=== PATIENT | male | born 1955 | race Caucasian/White ===

== ENCOUNTER → 2017-07-23 | Outpatient (CLI) | payer BC ==
--- NOTE | 2017-07-23 10:24 | DIAGNOSTIC IMAGING REPORT ---
GI SERIES AND SMALL BOWEL CLINICAL HISTORY: ANEMIA COMPARISON STUDY: None FLUOROSCOPY TIME: 3.8 minutes. NUMBER OF FLUOROSCOPIC IMAGES: 45 FINDINGS: The patient swallowed effervescent granules and barium. There is one episode of trace aspiration. No esophageal masses were visualized. No gastric masses were evident. The duodenal bulb appeared normal. Reflux is identified. There is a duodenal diverticulum. There is a small hiatal hernia. The patient was administered Enterovue a small bowel follow-through was performed. There were no transition zones indicate bowel obstruction. Contrast reached the colon in 1 hour 20 minutes. Real-time fluoroscopic palpation reveal multiple abnormal loops of distal ileum characterized by mucosal nodularity mild narrowing and decreased peristalsis. IMPRESSION: 1. Small hiatal hernia with reflux 2. No evidence of bowel obstruction 3. Multiple abnormal loops of ileum characterized by mucosal nodularity, mild narrowing and diminished peristalsis. Diagnostic considerations include an infectious or inflammatory ileitis, versus metastatic disease. Electronically signed by: El Marion M.D. 07/23/2017 10:23 AM Dictated Date/Time: 07/23/2017 10:17 AM
== END | disposition home or self-care (01) ==
LOC: C.RAD 07:57
PROVIDERS: ATTEND Internal Medicine Gastroenterology
DX: D50.0 Iron deficiency anemia secondary to blood loss (chronic) (principal); K44.9 Diaphragmatic hernia without obstruction or gangrene; R93.3 Abnormal findings on diagnostic imaging of other parts of digestive tract

== ENCOUNTER 2018-02-14 20:51 | Emergency (ER) | payer BC ==
[~2018-02-14] VITALS: Ht 182.9 cm; Wt 89.1 kg
[2018-02-14 21:02] VITALS: TEMP 36.9; Ht 182.9 cm; Wt 89.1 kg
[2018-02-14 21:36] LABS: BASO % 0.9 %; BASO ABS # 0.06 K/uL (0-0.2); EOS % 4.5 %; EOS ABS # 0.31 K/uL (0-0.5); HEMATOCRIT 33.3 % (42-52); HEMOGLOBIN 11.4 g/dL (14.0-18.0); IG# 0.02 K/uL (0.00-0.02); LYMPH % 34.6 %; LYMPH ABS # 2.38 K/uL (1.2-3.4); MEAN CORPUSCULAR HEMOGLOBIN 29.5 pg (25-34); MEAN CORPUSCULAR HGB CONC 34.2 g/dl (32-36); MONO % 7.1 %; MONO ABS # 0.49 K/uL (0.11-0.59); NEUT % 52.6 %; NEUT ABS # 3.61 K/uL (1.4-6.5); PLATELET COUNT 312 K/uL (130-400); WHITE BLOOD COUNT 6.87 K/uL (4.8-10.8)
--- NOTE | 2018-02-14 21:39 | EMERGENCY ROOM VISIT NOTE ---
History Report prepared by Leisa: Isidro Vu Under the Supervision of: Dr. Emilee Lr M.D. First contact with patient: 21:11 Chief Complaint: RECTAL BLEEDING Stated Complaint: BLOOD IN WASTE History of Present Illness The patient is a 62 year old male who presents to the Emergency Room with complaints of recurrent rectal bleeding since 1800 today. He notes he had constipation for the last two days, though he was able to have a bowel movement last night. He notes it was a bloody stool initially and then he had a normal bowel movement. He notes he had to go again and it was bloody again and very loose; diarrhea. He has a history of inguinal hernias. He reports a history of sciatica. He reports abdominal pain. He had a colonoscopy one year ago, which was normal. He had a polyp that was removed. Source of History: patient Onset: 1799 today Position: other (rectal) Quality: other (bleeding ) Timing: other (recurrent) Associated Symptoms: + abdominal pain, + diarrhea Note: Notes bloody stools. Review of Systems See HPI for pertinent positives & negatives. A total of 10 systems reviewed and were otherwise negative. Past Medical & Surgical Medical Problems: (1) Inguinal hernia (2) Sciatica Family History Cancer Gallbladder disease Heart disease Hypertension Social History Smoking Status: Former Smoker Smokeless Tobacco Use: No Alcohol Use: none Drug Use: none Marital Status: Housing Status: lives with significant other Occupation Status: employed Current/Historical Medications Scheduled Ciprofloxacin Hcl (Cipro), 500 MG PO BID Ferrous Sulfate (Iron), 325 MG PO DAILY Metronidazole (Flagyl), 500 MG PO TID Multiple Vitamins W/ Minerals (Multi For Him 50+), 1 TAB PO DAILY Scheduled PRN Acetaminophen (Tylenol), 1,000 MG PO DIRECTED PRN for Pain Aspirin (Aspirin Ec), 325 MG PO DIRECTED PRN for Pain Naproxen (Aleve), 220 MG PO DIRECTED PRN for Pain Allergies Coded Allergies: No Known Allergies (Unverified , 02/14/18) Physical Exam Vital Signs Date Time Temp Pulse Resp B/P (MAP) Pulse Ox O2 Delivery O2 Flow Rate FiO2 02/14/18 22:46 69 20 124/77 96 Room Air 02/14/18 21:43 70 02/14/18 21:02 36.9 85 19 127/79 97 Room Air Physical Exam Vital signs reviewed. General: Well-appearing, in no significant distress. HEENT: No scleral icterus, PERRLA, neck supple. Atraumatic. Cardiovascular: Regular rate and rhythm, no extra sounds. Pulmonary: Clear to auscultation bilaterally, normal work of breathing. Abdomen: Soft, mild RLQ tenderness, no rebound, no guarding, nondistended, positive bowel sounds. Rectal: Guaiac positive, normal rectal mucosa. Musculoskeletal: Atraumatic, no peripheral edema. Neurologic: Patient awake alert and oriented x 3 Skin: Warm, dry, no rash Medical Decision & Procedures ER Provider Diagnostic Interpretation: Radiology results as stated below per my review and radiologist interpretation: ABD/PELVIS IV CONTRAST ONLY CLINICAL HISTORY: 62 years-old Male presenting with diverticulitis, GIB. TECHNIQUE: Multidetector CT of the abdomen and pelvis was performed after the administration of intravenous contrast. IV contrast: 117 mL of Optiray 320. A dose lowering technique was used consistent with the principles of ALARA (as low as reasonably achievable). COMPARISON: None. CT DOSE (mGy.cm): The estimated cumulative dose is 507.01 mGy.cm. FINDINGS: Rn Charge topogram: Unremarkable. Lung bases: Minimal basilar opacities, likely atelectasis. 6 mm solid nodule at the left lower lobe (series 3 image 60). Normal heart size. Coronary artery calcification. No pericardial or pleural effusion. Liver: Normal morphology. No liver lesion. Patent hepatic vasculature. Biliary: No intrahepatic or extrahepatic biliary ductal dilatation. Gallbladder contains gallstones. Pancreas: Normal. Spleen: Normal. Adrenal glands: Normal. Kidneys and ureters: Normal. No hydronephrosis. Bladder: Normal. Pelvic organs: Prostate and seminal vesicles normal. Bowel: Diverticulosis of the descending and proximal to mid sigmoid colon. Pericolonic fat infiltration at the proximal sigmoid colon. No adjacent fluid collection or extraluminal gas. The appendix is normal. No bowel obstruction. Duodenal diverticulum noted. No surrounding inflammatory change. Peritoneal cavity: No free fluid or intraperitoneal gas. Peritoneal thickening along the left paracolic gutter inferiorly. Lymph nodes: No enlarged lymph nodes in the abdomen or pelvis. Vasculature: Atherosclerosis of the normal caliber abdominal aorta. IVC patent. Abdominal wall: Normal. Musculoskeletal: Degenerative changes of the spine. IMPRESSION: 1. Findings consistent with acute uncomplicated diverticulitis at the proximal sigmoid colon. No extraluminal gas or abscess. 2. 6 mm solid nodule at the left lower lobe. Follow-up per Blair Society 2017 recommendations below. Please refer to below summary of Fleischner Society 2017 recommendations for follow-up of incidental CT nodules (Judith Albrecht et al. Guidelines for management of incidental pulmonary nodules detected on CT images: From the Fleischner Society 2017. Radiology 2017; 284: 228-243.) SOLID NODULES Single nodule; size < 6 mm * Low risk patients: No routine follow-up * High risk patients: Optional CT at 12 months Single nodule; size 6-8 mm * Low risk patients: CT at 6-12 months, then consider CT at 18-24 months * High risk patients: CT at 6-12 months, then at 18-24 months Single nodule; size > 8 mm * Either low or high risk patients: Considered CT at 3 months, PET/CT, or tissue sampling Multiple nodules; size < 6 mm * Low risk patients: No routine follow up * High risk patients: Optional CT at 12 months Multiple nodules; size 6-8 mm * Low risk patients: CT at 3-6 months, then consider CT at 18-24 months * High risk patients: CT at 3-6 months, then at 18-24 months Multiple nodules; size > 8 mm * Low risk patients: CT at 3-6 months, then consider at 18-24 months * High risk patients: CT at 3-6 months, then at 18-24 months SUBSOLID NODULES Single ground-glass nodule * Nodule size < 6 mm: No routine follow-up * Nodule size > or = 6 mm: CT at 6-12 months to confirm persistence, then CT every 2 years until 5 years Single part-solid nodule * Nodule size < 6 mm: No routine follow-up * Nodules size > or = 6 mm: CT at 3-6 months to confirm persistence. If unchanged and solid component remains < 6 mm, annual CT should be performed for 5 years Multiple nodules * Nodule size < 6 mm: CT at 3-6 months. If stable, consider CT at 2 and 4 years. * Nodules size > or = 6 mm: CT at 3-6 months. Subsequent management based on the most suspicious nodule(s) NOTE: 1) These guidelines apply to incidental nodules. These guidelines do NOT apply to patients younger than 35 years, immunocompromised patients, or patients with cancer. 2) Risk categories: * Low risk patients: Minimal or absent history of smoking and/or other known risk factors * High risk patients: History of smoking, exposure to other carcinogens, emphysema, fibrosis, upper lobe location, family history of lung cancer, etc. 3) If a nodule up to 8 mm is partly solid or is ground glass, further follow-up is required after 24 months to exclude possible slow growing adenocarcinoma. Electronically signed by: Bacilio Lopes M.D. 02/14/2018 10:38 PM Dictated Date/Time: 02/14/2018 10:31 PM Laboratory Results 02/14/18 21:26 Red Blood Count 3.87, Mean Corpuscular Volume 86.0, Mean Corpuscular Hemoglobin 29.5, Mean Corpuscular Hemoglobin Concent 34.2, Mean Platelet Volume 9.0, Neutrophils (%) (Auto) 52.6, Lymphocytes (%) (Auto) 34.6, Monocytes (%) (Auto) 7.1, Eosinophils (%) (Auto) 4.5, Basophils (%) (Auto) 0.9, Neutrophils # (Auto) 3.61, Lymphocytes # (Auto) 2.38, Monocytes # (Auto) 0.49, Eosinophils # (Auto) 0.31, Basophils # (Auto) 0.06 02/14/18 21:26 Test 02/14/18 21:26 White Blood Count 6.87 K/uL (4.8-10.8) Red Blood Count 3.87 M/uL (4.7-6.1) Hemoglobin 11.4 g/dL (14.0-18.0) Hematocrit 33.3 % (42-52) Mean Corpuscular Volume 86.0 fL (80-100) Mean Corpuscular Hemoglobin 29.5 pg (25-34) Mean Corpuscular Hemoglobin Concent 34.2 g/dl (32-36) Platelet Count 312 K/uL (130-400) Mean Platelet Volume 9.0 fL (7.4-10.4) Neutrophils (%) (Auto) 52.6 % Lymphocytes (%) (Auto) 34.6 % Monocytes (%) (Auto) 7.1 % Eosinophils (%) (Auto) 4.5 % Basophils (%) (Auto) 0.9 % Neutrophils # (Auto) 3.61 K/uL (1.4-6.5) Lymphocytes # (Auto) 2.38 K/uL (1.2-3.4) Monocytes # (Auto) 0.49 K/uL (0.11-0.59) Eosinophils # (Auto) 0.31 K/uL (0-0.5) Basophils # (Auto) 0.06 K/uL (0-0.2) RDW Standard Deviation 41.0 fL (36.4-46.3) RDW Coefficient of Variation 13.0 % (11.5-14.5) Immature Granulocyte % (Auto) 0.3 % Immature Granulocyte # (Auto) 0.02 K/uL (0.00-0.02) Prothrombin Time 10.2 SECONDS (9.0-12.0) Prothromb Time International Ratio 1.0 (0.9-1.1) Activated Partial Thromboplast Time 26.0 SECONDS (21.0-31.0) Partial Thromboplastin Ratio 1.0 Anion Gap 6.0 mmol/L (3-11) Est Creatinine Clear Calc Drug Dose 85.8 ml/min Estimated GFR () 95.4 Estimated GFR (Non- 82.3 BUN/Creatinine Ratio 21.1 (10-20) Calcium Level 8.7 mg/dl (8.5-10.1) Total Bilirubin 0.4 mg/dl (0.2-1) Direct Bilirubin 0.1 mg/dl (0-0.2) Aspartate Amino Transf (AST/SGOT) 23 U/L (15-37) Alanine Aminotransferase (ALT/SGPT) 38 U/L (12-78) Alkaline Phosphatase 95 U/L (45-117) Total Protein 6.3 gm/dl (6.4-8.2) Albumin 3.2 gm/dl (3.4-5.0) Laboratory results per my review. Medications Administered Medications (Trade) Dose Ordered Sig/Prabha Route Start Time Stop Time Status Last Admin Dose Admin Ciprofloxacin (Cipro Tab) 500 mg NOW STAT PO 02/14/18 23:25 18 23:27 DC 02/14/18 23:31 500 MG Metronidazole (Flagyl Tab) 500 mg NOW STAT PO 02/14/18 23:25 18 23:27 DC 02/14/18 23:31 500 MG ECG Per My Interpretation Indication: abdominal pain Rate (beats per minute): 73 Rhythm: normal sinus Findings: no acute ischemic change, no ectopy, other (Previous inferior infarct.) ED Course 2129: Past medical records reviewed. The patient was evaluated in room C4. A complete history and physical examination was performed. 0: I reassessed the patient at this time. I discussed the results and treatment plan with the patient. I answered all pertaining questions that he had. He expressed understanding and verbalized agreement. The patient will be discharged home. 5: Ordered Flagyl 500 mg and Cipro 500 mg PO Medical Decision Differential diagnosis: Etiologies such as diverticulosis, AVM, coagulopathy, colitis, inflammatory bowel disease, malignancy, Antonella-Calvillo tear, esophagitis, peptic ulcer disease , variceal bleed, gastritis, epistaxis, fissure, hemorrhoids, as well as others were entertained. This patient was evaluated and appeared to be in no significant distress. IV access was obtained and laboratory work was drawn. Patient was placed on cardiac cath lab radiology technologist and found to be in a normal sinus rhythm. Patient's blood pressures did remain stable. He is found to be mildly anemic with a hemoglobin of 11.4. Patient had no further bowel movements in the emergency department. CT scan of the abdomen pelvis was performed and is consistent with an acute diverticulitis. On reevaluation, the patient continued to do well. Patient was given a dose of p.o. Cipro and Flagyl. Patient was discharged to the care of his and will return to the ER for worsening of symptoms or any medical concerns. Medication Reconcilliation Current Medication List: was personally reviewed by me Blood Pressure Screening Patient's blood pressure: Normal blood pressure Impression Primary Impression: Lower GI bleed Additional Impression: Diverticulitis Scribe Attestation The scribe's documentation has been prepared under my direction and personally reviewed by me in its entirety. I confirm that the note above accurately reflects all work, treatment, procedures, and medical decision making performed by me. Departure Information Dispostion Home / Self-Care Prescriptions Metronidazole (Flagyl) 500 Mg Tab 500 MG PO TID, #21 TAB Prov: Emilee Lr M.D. 02/14/18 Ciprofloxacin Hcl (CIPRO) 500 Mg Tab 500 MG PO BID, #14 TAB Prov: Emilee Lr M.D. 02/14/18 Referrals Nhan Key M.D. (PCP) Forms HOME CARE DOCUMENTATION FORM, IMPORTANT VISIT INFORMATION, WORK / SCHOOL INSTRUCTIONS Patient Instructions My [facility] Additional Instructions Diagnosis: Lower GI Bleed, Diverticulitis Cipro 500 mg twice daily for 7 days. Flagyl 500 mg three times daily for 7 days. Drink plenty of clear fluids. Follow up with your doctor this week for reevaluation. Return to the emergency for worsening of symptoms or any medical concerns. Problem Qualifiers
[2018-02-14 21:57] LABS: ALBUMIN 3.2 gm/dl (3.4-5.0); CALCIUM 8.7 mg/dl (8.5-10.1); CREATININE 0.98 mg/dl (0.60-1.40); POTASSIUM 3.8 mmol/L (3.5-5.1)
[2018-02-14 22:00] LABS: TOTAL PROTEIN 6.3 gm/dl (6.4-8.2)
[2018-02-14] MEDS ORDERED: ASPI325T39 PO (22:06)
[2018-02-14] MEDS ORDERED: MULT-221 PO (22:06)
[2018-02-14] MEDS ORDERED: FERR1TAB23 PO (22:06)
[2018-02-14] MEDS ORDERED: ACET-1256 PO (22:06)
[2018-02-14] MEDS ORDERED: NAPR1TAB9 PO (22:06)
[2018-02-14] MEDS ORDERED: OPTIRAY 320 IV PRN (22:15)
--- NOTE | 2018-02-14 22:39 | DIAGNOSTIC IMAGING REPORT ---
ABD/PELVIS IV CONTRAST ONLY CLINICAL HISTORY: 62 years-old Male presenting with diverticulitis, GIB. TECHNIQUE: Multidetector CT of the abdomen and pelvis was performed after the administration of intravenous contrast. IV contrast: 117 mL of Optiray 320. A dose lowering technique was used consistent with the principles of ALARA (as low as reasonably achievable). COMPARISON: None. CT DOSE (mGy.cm): The estimated cumulative dose is 507.01 mGy.cm. FINDINGS: [employer] topogram: Unremarkable. Lung bases: Minimal basilar opacities, likely atelectasis. 6 mm solid nodule at the left lower lobe (series 3 image 60). Normal heart size. Coronary artery calcification. No pericardial or pleural effusion. Liver: Normal morphology. No liver lesion. Patent hepatic vasculature. Biliary: No intrahepatic or extrahepatic biliary ductal dilatation. Gallbladder contains gallstones. Pancreas: Normal. Spleen: Normal. Adrenal glands: Normal. Kidneys and ureters: Normal. No hydronephrosis. Bladder: Normal. Pelvic organs: Prostate and seminal vesicles normal. Bowel: Diverticulosis of the descending and proximal to mid sigmoid colon. Pericolonic fat infiltration at the proximal sigmoid colon. No adjacent fluid collection or extraluminal gas. The appendix is normal. No bowel obstruction. Duodenal diverticulum noted. No surrounding inflammatory change. Peritoneal cavity: No free fluid or intraperitoneal gas. Peritoneal thickening along the left paracolic gutter inferiorly. Lymph nodes: No enlarged lymph nodes in the abdomen or pelvis. Vasculature: Atherosclerosis of the normal caliber abdominal aorta. IVC patent. Abdominal wall: Normal. Musculoskeletal: Degenerative changes of the spine. IMPRESSION: 1. Findings consistent with acute uncomplicated diverticulitis at the proximal sigmoid colon. No extraluminal gas or abscess. 2. 6 mm solid nodule at the left lower lobe. Follow-up per Blair Society 2017 recommendations below. Please refer to below summary of Fleischner Society 2017 recommendations for follow-up of incidental CT nodules (H Ambrocio et al. Guidelines for management of incidental pulmonary nodules detected on CT images: From the Fleischner Society 2017. Radiology 2017; 284: 228-243.) SOLID NODULES Single nodule; size < 6 mm * Low risk patients: No routine follow-up * High risk patients: Optional CT at 12 months Single nodule; size 6-8 mm * Low risk patients: CT at 6-12 months, then consider CT at 18-24 months * High risk patients: CT at 6-12 months, then at 18-24 months Single nodule; size > 8 mm * Either low or high risk patients: Considered CT at 3 months, PET/CT, or tissue sampling Multiple nodules; size < 6 mm * Low risk patients: No routine follow up * High risk patients: Optional CT at 12 months Multiple nodules; size 6-8 mm * Low risk patients: CT at 3-6 months, then consider CT at 18-24 months * High risk patients: CT at 3-6 months, then at 18-24 months Multiple nodules; size > 8 mm * Low risk patients: CT at 3-6 months, then consider at 18-24 months * High risk patients: CT at 3-6 months, then at 18-24 months SUBSOLID NODULES Single ground-glass nodule * Nodule size < 6 mm: No routine follow-up * Nodule size > or = 6 mm: CT at 6-12 months to confirm persistence, then CT every 2 years until 5 years Single part-solid nodule * Nodule size < 6 mm: No routine follow-up * Nodules size > or = 6 mm: CT at 3-6 months to confirm persistence. If unchanged and solid component remains < 6 mm, annual CT should be performed for 5 years Multiple nodules * Nodule size < 6 mm: CT at 3-6 months. If stable, consider CT at 2 and 4 years. * Nodules size > or = 6 mm: CT at 3-6 months. Subsequent management based on the most suspicious nodule(s) NOTE: 1) These guidelines apply to incidental nodules. These guidelines do NOT apply to patients younger than 35 years, immunocompromised patients, or patients with cancer. 2) Risk categories: * Low risk patients: Minimal or absent history of smoking and/or other known risk factors * High risk patients: History of smoking, exposure to other carcinogens, emphysema, fibrosis, upper lobe location, family history of lung cancer, etc. 3) If a nodule up to 8 mm is partly solid or is ground glass, further follow-up is required after 24 months to exclude possible slow growing adenocarcinoma. Electronically signed by: Bacilio Lopes M.D. 02/14/2018 10:38 PM Dictated Date/Time: 02/14/2018 10:31 PM
[2018-02-14 22:46] VITALS: BP 124/77; PULSE 69; O2SAT 96
[2018-02-14] MEDS ORDERED: CIPR-255 PO (23:16)
[2018-02-14] MEDS ORDERED: METR-163 PO (23:16)
[2018-02-14] MEDS ORDERED: METRONIDAZOLE 250 MG TAB PO STA (23:25)
[2018-02-14] MEDS ORDERED: CIPROFLOXACIN 500 MG TAB PO STA (23:25)
[2018-02-15] MEDS ORDERED: CIPR1TAB10 PO (02:26)
[2018-02-15] MEDS ORDERED: METR-163 PO (02:30)
[2018-02-16] MEDS ORDERED: METR-163 PO (13:49)
[2018-02-16] MEDS ORDERED: CIPR1TAB10 PO (13:49)
== END 2018-02-14 23:26 | disposition home or self-care (01) ==
LOC: C.EDB 20:51 → C.EDC 23:26
DX: K92.2 Gastrointestinal hemorrhage, unspecified (principal); K57.92 Diverticulitis of intestine, part unspecified, without perforation or abscess without bleeding; Z87.891 Personal history of nicotine dependence

== ENCOUNTER 2018-02-15 02:13 | Inpatient (IN) | payer BC ==
[2018-02-15] VITALS (8 sets, daily range): BP systolic 111–124; BP diastolic 70–75; PULSE 62–73; TEMP 36.4–36.7; O2SAT 96–100; Ht 182.9 cm; Wt 86.8 kg
[~2018-02-15] VITALS: Ht 182.9 cm; Wt 86.8 kg
[~2018-02-15 02:13] MED LIST: ACET-1256 PO; ASPI325T39 PO; CIPR-255 PO; FERR1TAB23 PO; METR-163 PO; MULT-221 PO; NAPR1TAB9 PO
[2018-02-15] MEDS ORDERED: SODIUM CHLORIDE 0.9% 1000ML 1,000 ML IV STA ×3 (02:15→07:29)
[2018-02-15] MEDS ORDERED: CIPR1TAB10 PO (02:26)
[2018-02-15] MEDS ORDERED: METR-163 PO (02:30)
[2018-02-15 02:41] LABS: ISTAT IONIZED CALCIUM 1.25 mmol/l (1.12-1.32); ISTAT POTASSIUM 3.9 mEq/L (3.3-5.0)
[2018-02-15 03:07] LABS: BASO % 0.5 %; BASO ABS # 0.03 K/uL (0-0.2); EOS % 3.4 %; EOS ABS # 0.19 K/uL (0-0.5); HEMATOCRIT 31.5 % (42-52); HEMOGLOBIN 10.4 g/dL (14.0-18.0); IG# 0.02 K/uL (0.00-0.02); LYMPH % 26.1 %; LYMPH ABS # 1.46 K/uL (1.2-3.4); MEAN CELL VOLUME 86.5 fL (80-100); MEAN CORPUSCULAR HEMOGLOBIN 28.6 pg (25-34); MEAN PLATELET VOLUME 9.2 fL (7.4-10.4); MONO % 8.1 %; MONO ABS # 0.45 K/uL (0.11-0.59); NEUT % 61.5 %; NEUT ABS # 3.44 K/uL (1.4-6.5); PLATELET COUNT 288 K/uL (130-400); RED CELL DISTRIBUTION WIDTH SD 41.7 fL (36.4-46.3); WHITE BLOOD COUNT 5.59 K/uL (4.8-10.8)
[2018-02-15 03:18] LABS: ALBUMIN 2.9 gm/dl (3.4-5.0); CALCIUM 8.8 mg/dl (8.5-10.1); CREATININE 1.08 mg/dl (0.60-1.40); POTASSIUM 3.8 mmol/L (3.5-5.1)
[2018-02-15 03:29] LABS: TOTAL PROTEIN 5.8 gm/dl (6.4-8.2)
[2018-02-15] MEDS ORDERED: NSS + 20MEQ KCL 1000ML 1,000 ML IV ONE ×4 (04:00→07:00)
[2018-02-15] MEDS ORDERED: MAGNESIUM SULFATE 1GM / D5W 100 ML IV STA (04:13)
[2018-02-15] MEDS ORDERED: NITROGLYCERIN 0.4 MG SL PER TAB CHARGE SL PRN (04:15)
[2018-02-15] MEDS ORDERED: PROCHLORPERAZINE INJ 5 MG in SYRINGE 4 ML IV PRN (04:15)
[2018-02-15] MEDS ORDERED: MoRPHine SULFATE 4 MG/ML 1 ML CARP\\VIAL IV PRN (04:15)
[2018-02-15] MEDS ORDERED: ACETAMINOPHEN 325 MG TAB PO PRN (04:15)
[2018-02-15] MEDS ORDERED: OXYCODONE/ACETAMINOPHEN 5-325 TAB PO PRN (04:15)
[2018-02-15] MEDS ORDERED: LORAZEPAM 2 MG/ML 1 ML VIAL IV PRN (05:00)
[2018-02-15] MEDS: CEFTRIAXONE SOD INJ 1 GM in DEXTROSE 5% ADD-VANTAGE 50ML 50 ML IV SCH (05:14)
[2018-02-15] MEDS: METRONIDAZOLE / NSS 500 MG in PREMIXED NSS 100 ML IV SCH ×3 (05:59→21:35)
[2018-02-15 06:26] LABS: HEMOGLOBIN 11.1 g/dL (14.0-18.0); RETIC COUNT % 1.6 % (0.5-2.0)
--- NOTE | 2018-02-15 07:00 | DIAGNOSTIC IMAGING REPORT ---
CT OF THE HEAD WITHOUT CONTRAST CLINICAL HISTORY: syncope, asa intake COMPARISON STUDY: No previous studies for comparison. CT DOSE: 614.27 mGy.cm TECHNIQUE: Helical axial images of the head were obtained without IV contrast. Automated exposure control was utilized for the study. A dose lowering technique was utilized adhering to the principles of ALARA. FINDINGS: No acute intracranial hemorrhage or midline shift is present. Ventricular system is normal. Basilar cisterns are patent. There are no extra-axial collections. Farah-white differentiation is maintained. There are no findings to suggest acute dural sinus thrombosis or acute territorial infarct. There is an intermediate attenuation sellar mass with suprasellar extension measures approximately 3.2 x 2.6 x 3.1 cm. This has associated bony remodeling/expansion of the sella. There are no significant calvarial abnormalities. Visualized portions of the mastoid air cells are clear. There is minimal ethmoid sinus mucosal thickening. IMPRESSION: 1. No acute intracranial findings. 2. Sellar mass with suprasellar extension, measuring approximately 3.2 x 2.6 x 3.1 cm. A macroadenoma is favored. A meningioma or craniopharyngioma could appear similar. An aneurysm is within the differential although considered less likely. A pituitary protocol MRI is recommended as well as an MRA of the intracranial circulation to exclude aneurysm. Discussed with Dr. Stratton at time of dictation. Electronically signed by: Jamir Lebron M.D. 02/15/2018 6:58 AM Dictated Date/Time: 02/15/2018 6:36 AM
[2018-02-15 08:19] LABS: PTT PATIENT 25.3 SECONDS (21.0-31.0)
[2018-02-15] MEDS: CEROVITE ADV FORMULA TAB PO SCH (08:27)
--- NOTE | 2018-02-15 08:37 | HISTORY & PHYSICAL EXAMINATION ---
DATE OF ADMISSION: 02/15/2018 PRIMARY CARE DOCTOR: Dr. Aceves. CHIEF COMPLAINT: Syncope. HISTORY OF PRESENT ILLNESS: History obtained from patient, daughter, and records. Medical history significant for chronic anemia (patient does not know his baseline). Last 2 days, patient noted right lower abdominal pain, initially constipated, later noted to have rectal bleeding last night about 2 episodes. No recent antibiotics. No known sick contacts. Aspirin intake for pain. Seen at the Emergency Room. CT abdomen and pelvis showed uncomplicated diverticulitis proximal sigmoid colon , a 6 mm solid nodule in the left lower lobe. Hemoglobin noted to be 11. Patient normotensive. Patient given Cipro and Flagyl tablets at the ER and sent home with antibiotic prescription. At home, patient felt lightheaded, dizzy, had cold sweats, had 2 more bloody bowel movements. Unwitnessed syncopal event in the TV room. Patient found by his . Bladder incontinence noted, no tongue biting. No chest pain, no shortness of breath. No headache. No blurred or double vision. Brought to the Emergency Room. SBP 90s. MEDICAL HISTORY: As above. EGD and colonoscopy this year as per patient with [facility] in [place], [place] for anemia. Normal findings as per patient. SURGICAL HISTORY: He had hernia surgery, eye surgery in childhood. HOME MEDICATIONS. Cipro, Flagyl, iron sulfate, Aleve, aspirin. MVi ALLERGIES: No known drug allergies. FAMILY HISTORY: Heart disease, hypertension PERSONAL SOCIAL HISTORY: Nonsmoker. No EtOH intake. 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 REVIEW OF SYSTEMS: As per HPI. All 10 systems were reviewed, all other ROS negative. PHYSICAL EXAMINATION: VITAL SIGNS: Blood pressure was noted to be 95/56, pulse rate noted to be 55, RR 20 T 37 sats 99 on room air. GENERAL: Noted to be slightly anxious, no respiratory distress. SKIN: Pallor, warm. HEENT: Pale palpebral conjunctivae. No ptosis, bespectacled. Dry mucosa. NECK: Short, supple. CHEST: Clear to auscultation. No tenderness. HEART: Bradycardic. No murmur. ABDOMEN: Some distention and nontender . EXTREMITIES: No edema. No tenderness no gross deformities NEUROLOGIC coherent, no facial asymmetry . No gross focality. LABORATORY: Hemoglobin was noted to be 10.4 from 11.6 (5/3), white cells 5.9, platelets noted to be 288. Sodium noted to be 135, potassium 3.8, chloride 107, CO2 24, BUN 20, creatinine 1, glucose 163. Lactic acid was noted to be 2.3. EKG as per my interpretation, rate 55, sinus bradycardia, some T-wave flattening in the lateral leads. CT head initial read, no evidence of intracranial hemorrhage or shift, expansile heterogeneous intrasellar mass with suprasellar extension, neoplasm versus aneurysm. CTA or MRI, MRA of brain to better evaluate. ASSESSMENT: 1. Syncope likely secondary to orthostasis secondary to lower gastrointestinal bleed 2 to R sided diverticular bleed (ro Clostridium difficile) rule out other differentials for unwitnessed syncopal event such as arrhythmia , structural cardiac pathology, seizures (given episode of urinary incontinence) 2. Acute on chronic anemia secondary to LGIB unknown baseline. 3. Intracranial mass on initial CT read. 4. Hyperglycemia rule out DM 5. incidental finding of SPN PLAN: PCU IV fluids. Follow lactic acid Stool C. difficile Ceftriaxone and Flagyl for now. Follow H&H, transfuse PRBC if hemoglobin less than 7 and or for symptomatic anemia Anemia workup GI consult RE LGIB. Syncope workup: TTE, EEG follow official CT head results; possible MRI of brain. Check hemoglobin A1c outpatient follow-up surveillance study for SPN DVT prophylaxis SCDs. RE LGIB Full code. MTDD
[2018-02-15 09:10] LABS: HEMOGLOBIN A1C 5.6 % (4.5-5.6)
--- NOTE | 2018-02-15 09:20 | ECHOCARDIOGRAM REPORT ---
*NOTICE TO RECEIVING DEMOCRAT AGENCY This information is strictly Confidential and protected under [place] law. [place] law prohibits you from making any further disclosure of this information unless further disclosure is expressly permitted by the written consent of the person to whom it pertains or is authorized by law. A general authorization for the release of medical or other information is not sufficient for this purpose. Hospital accepts no responsibility if the information is made available to any other person, INCLUDING THE PATIENT. Interpretation Summary * Name: ROCCO FERGUSON Study Date: 02/15/2018 07:16 AM BP: 111/74 mmHg * Patient Location: C.2T\S\E215\S\1 HR: 59 * : 1955 (M/d/yyyy) Gender: Male Height: 72 in * Age: 62 yrs Ethnicity: CA Weight: 191 lb * Ordering Physician: Jayce Stratton * Referring Physician: UNKNOWN * Performed By: Loni Cabrera RDCS * * Reason For Study: SYNCOPE * BSA: 2.1 m2 * -- Conclusions -- * The left ventricle is normal in size. * The left ventricular wall motion is normal. * Left ventricular systolic function is normal. * Ejection Fraction = 60-65%. * There is mild concentric left ventricular hypertrophy. * There is no significant valvular disease Procedure Details * A complete two-dimensional transthoracic echocardiogram was performed (2D, M-mode, Doppler and color flow Doppler). Left Ventricle * The left ventricle is normal in size. * There is mild concentric left ventricular hypertrophy. * Ejection Fraction = 60-65%. * Left ventricular systolic function is normal. * The left ventricular wall motion is normal. Right Ventricle * The right ventricle is normal in size and function. Atria * The left atrial size is normal. * Right atrial size is normal. * No ASD detected; PFO is not assessed. Mitral Valve * The mitral valve anatomy is normal. * There is no mitral valve stenosis. * There is trace mitral regurgitation. Tricuspid Valve * The tricuspid valve anatomy is normal. * There is no tricuspid stenosis. * There is trace tricuspid regurgitation. Aortic Valve * The aortic valve is trileaflet. * No hemodynamically significant valvular aortic stenosis. * No aortic regurgitation is present. Pulmonic Valve * The pulmonic valve is not well visualized. Great Vessels * The aortic root is normal size. Pericardium/Pleural * There is no pericardial effusion. Great Vessels * Normal inferior vena cava diameter and respiratory variation suggests normal central venous pressure. MMode 2D Measurements and Calculations IVSd 1.3 cm IVSs 1.9 cm LVIDd 4.4 cm LVIDs 3.0 cm LVPWd 1.2 cm LVPWs 1.6 cm IVS/LVPW 1.0 FS 32.2 % EDV(Teich) 86.0 ml ESV(Teich) 33.9 ml EF(Teich) 60.6 % EDV(cubed) 83.1 ml ESV(cubed) 25.9 ml EF(cubed) 68.8 % % IVS thick 47.1 % % LVPW thick 27.3 % LV mass(C)d 203.8 grams LV mass(C)dI 97.6 grams/m\S\2 LV mass(C)s 200.4 grams LV mass(C)sI 95.9 grams/m\S\2 SV(Teich) 52.2 ml SI(Teich) 25.0 ml/m\S\2 SV(cubed) 57.2 ml SI(cubed) 27.4 ml/m\S\2 Ao root diam 3.4 cm Ao root area 9.1 cm\S\2 LA dimension 3.4 cm LA/Ao 0.98 LVAd ap4 31.1 cm\S\2 LVLd ap4 8.4 cm EDV(MOD-sp4) 98.7 ml EDV(sp4-el) 97.1 ml LVAs ap4 18.1 cm\S\2 LVLs ap4 7.1 cm ESV(MOD-sp4) 42.3 ml ESV(sp4-el) 39.2 ml EF(MOD-sp4) 57.2 % EF(sp4-el) 59.6 % LVAd ap2 29.0 cm\S\2 LVLd ap2 8.0 cm EDV(MOD-sp2) 89.1 ml EDV(sp2-el) 89.4 ml LVAs ap2 16.2 cm\S\2 LVLs ap2 6.6 cm ESV(MOD-sp2) 33.6 ml ESV(sp2-el) 34.1 ml EF(MOD-sp2) 62.2 % EF(sp2-el) 61.9 % LVLd %diff -5.83 % EDV(MOD-bp) 96.8 ml LVLs %diff -8.27 % ESV(MOD-bp) 38.0 ml EF(MOD-bp) 60.8 % SV(MOD-sp4) 56.4 ml SI(MOD-sp4) 27.0 ml/m\S\2 SV(MOD-sp2) 55.5 ml SI(MOD-sp2) 26.5 ml/m\S\2 SV(MOD-bp) 58.8 ml SI(MOD-bp) 28.2 ml/m\S\2 SV(sp4-el) 57.8 ml SI(sp4-el) 27.7 ml/m\S\2 SV(sp2-el) 55.3 ml SI(sp2-el) 26.5 ml/m\S\2 Doppler Measurements and Calculations MV E max jarrett 68.9 cm/sec MV A max jarrett 79.5 cm/sec MV E/A 0.87 MV dec time 0.27 sec Ao V2 max 171.6 cm/sec Ao max PG 11.8 mmHg Ao max PG (full) 7.3 mmHg LV V1 max PG 4.5 mmHg LV V1 max 106.2 cm/sec
--- NOTE | 2018-02-15 10:16 | DIAGNOSTIC IMAGING REPORT ---
BONY ORBITS 3 VIEWS CLINICAL HISTORY: MRI clearance. FINDINGS: 3 views of the bony orbits are obtained. No prior studies are available for comparison at the time of dictation. There is no radiodense/metallic foreign body seen in the region of the bony orbits. The bony orbits are intact as imaged. The visualized paranasal sinuses and the mastoid air cells appear clear. The imaged calvarium appears intact. IMPRESSION: There is no radiodense/metallic foreign body seen in the region of the bony orbits. Electronically signed by: Devante Cervantes M.D. 02/15/2018 10:15 AM Dictated Date/Time: 02/15/2018 10:15 AM
--- NOTE | 2018-02-15 11:14 | ELECTROENCEPHALOGRAPH REPORT ---
FOR: Dr. Stratton CLINICAL DIAGNOSIS: Question seizures versus syncope. ELECTROENCEPHALOGRAM DIAGNOSIS: Essentially normal during wakefulness and drowsiness. DESCRIPTION OF TRACING: This EEG was done as a bedside recording and is of good technical quality with few or no muscle or movement artifacts. A video analysis of patient's behavior and movement was obtained. Photic stimulation was performed. Episodes of short duration of drowsiness are recorded throughout the tracing. Under these conditions and during what appears to be clinical wakefulness, there is evidence for a background rhythm in the alpha range of up to 10 Hz of maximum frequency and 20-30 microvolts of maximum amplitude. This is maximum posterior head regions and bilaterally symmetrical. Polymorphic mid frequency theta activity is seen over all head regions without clear focal or regional predominance. Anterior head region maximum bilaterally symmetrical low voltage fast activity in the beta range is present. Episodically there are brief duration periods of drowsiness during which there is a buildup of higher amplitude slower frequency theta delta activity in the alpha rhythm reverts in to an upper theta range, but during these intervals no abnormal activations occur. Photic stimulation provokes modest driving response without a photomyogenic or photoparoxysmal component. At no time during the waking tracing or during drowsiness is there evidence for potentially epileptogenic discharge in the form of polyspike or spike wave bursts, focal sharp waves or focal spikes. INTERPRETATION: This EEG is essentially normal during wakefulness, drowsiness and after photic stimulation reveals no evidence for focal or generalized encephalopathy and no evidence for potentially epileptogenic activity.
--- NOTE | 2018-02-15 11:43 | DIAGNOSTIC IMAGING REPORT ---
MRA HEAD WITHOUT CONTRAST HISTORY: Sellar mass abn ct head TECHNIQUE: 3-D [id number] MRA of the brain was performed without contrast. COMPARISON STUDY: CT brain same date FINDINGS: Visualized intracranial internal carotid arteries, distal vertebral arteries, and basilar artery are widely patent. There is no significant stenosis, occlusion, or aneurysm seen within the bilateral ACAs, MCAs, or stone driller helper. The parasellar components of the internal carotid vasculature are slightly displaced laterally due to the sellar mass. There is no evidence for vascular involvement. There is no evidence for aneurysm or dissection. IMPRESSION: 1. No evidence for aneurysm or dissection. 2. Slight vascular displacement secondary to the sellar mass previously described. 3. No evidence for vascular involvement. The above report was generated using voice recognition software. It may contain grammatical, syntax or spelling errors. Electronically signed by: Justin Davis M.D. 02/15/2018 11:41 AM Dictated Date/Time: 02/15/2018 11:38 AM
--- NOTE | 2018-02-15 11:51 | Gastrointestinal Consultation ---
Gastrointestinal Consultation Date of Consultation: February 15, 2018 Attending Physician: Dr. Motta Consulting Physician: Dr. Renea Nunez Reason for Consultation: Rectal bleeding History of Present Illness Patient is a 62 year old male w/o a local PCP who reports a hx of chronic anemia and that he underwent EGD/colonoscopy by [facility] last summer with findings of a small poly and recommendation to repeat in 3-5 yrs. Yesterday evening, around 6 PM, he passed one BM that was liquid, with some bright red blood, a second BM was brown then a third BM soon after with blood again. He presented to our ED where CT suggested diverticulitis; Hb was stable at 11.4. He was discharged on Cipro/Flagyl. After going home, he experienced a syncopal episode and returned to the ED. Hb on return today was 10.4. He has not had further BMs and he denies any abdominal pain. Unfortunately, a CT of the head suggests a brain mass. MRI is pending. Past Medical/Surgical History Medical Problems: (1) Diverticulitis Status: Acute (2) Diverticulitis large intestine Status: Acute (3) Lower GI bleed Status: Acute Past Medical History: 1. Anemia 2. Colon polyp 3. Inguinal hernia 4. Sciatica Past Surgical History: EGD and colonoscopy by [facility] Family History Cancer Gallbladder disease Heart disease Hypertension Social History Smoking Status: Never Smoker Alcohol Use: none Drug Use: none Marital Status: Housing Status: lives with significant other Occupation Status: employed Allergies Coded Allergies: No Known Allergies (Unverified , 02/14/18) Current Medications Home Meds and Scripts Medications Dose Route/Sig Max Daily Dose Days Date Category Dose Instructions Flagyl (Metronidazole) 500 Mg Tab 500 Mg PO TID 02/15/18 Reported BEGIN 02/14/18 X 7 DAYS Cipro (Ciprofloxacin Hcl) 500 Mg Tab 500 Mg PO BID 02/15/18 Reported BEGIN 02/14/18 X7 DAYS. Tylenol (Acetaminophen) 500 Mg Tab 1,000 Mg PO DIRECTED PRN 02/14/18 Reported Aleve (Naproxen) 220 Mg Tab 220 Mg PO DIRECTED PRN 02/14/18 Reported Aspirin Ec (Aspirin) 325 Mg Tab 325 Mg PO DIRECTED PRN 02/14/18 Reported Iron (Ferrous Sulfate) 325 Mg Tab 325 Mg PO DAILY 02/14/18 Reported Multi For Him 50+ (Multiple Vitamins W/ Minerals) 1 Tab Tab 1 Tab PO DAILY 02/14/18 Reported Review of Systems Constitutional: No fever, No chills, No sweats, No weight loss, No weakness Eyes: No eye pain, No redness ENT: No sore throat, No trouble swallowing, No pain on swallowing Respiratory: No cough, No wheezing, No shortness of breath, No dyspnea on exertion Cardiac: No chest pain, No edema, No palpitations Abdomen: + see HPI, + pain (mentions mild RLQ cramping briefly yesterday, otherwise no abd pain and denies any current abdominal discomfort), + diarrhea, + constipation (prior to yesterday), No nausea, No vomiting Neuro: + problem reported (slightly unstable/weak on ambulation to the BR but did well with help), No memory loss, No weakness, No numbness/tingling, No vertigo, No balance problems Psych: No depression symptoms, No anxiety, No insomnia Heme: No abnormal bleeding/bruising, No night sweats Endo: No excessive thirst, No excessive urination Skin: No rash, No itch, No new/changing skin lesions, No jaundice Physical Exam Date Time Temp Pulse Resp B/P (MAP) Pulse Ox O2 Delivery O2 Flow Rate FiO2 02/15/18 08:00 100 Room Air 02/15/18 06:45 36.4 62 17 111/74 (86) 100 Room Air 02/15/18 04:41 36.5 66 20 124/70 Room Air 02/15/18 04:23 36.5 60 21 95/70 96 02/15/18 04:01 95/70 02/15/18 03:43 60 21 96 Room Air 02/15/18 03:34 96/66 02/15/18 03:13 59 16 99 02/15/18 03:08 109/70 02/15/18 03:07 58 18 109/70 98 Room Air 02/15/18 03:01 94/68 02/15/18 02:46 101/71 02/15/18 02:45 58 18 101/71 98 Room Air 02/15/18 02:43 59 24 99 02/15/18 02:32 99/64 02/15/18 02:31 02/15/18 02:27 92/65 02/15/18 02:19 36.5 57 18 95/56 96 Room Air General Appearance: no apparent distress Eyes: normal inspection, EOMI Neck: supple, no adenopathy, thyroid normal, no JVD Respiratory/Chest: chest non-tender, lungs clear, normal breath sounds, no accessory muscle use Cardiovascular: regular rate, rhythm, no JVD, no murmur Abdomen: normal bowel sounds, non tender, soft, no organomegaly Extremities: normal inspection, no pedal edema, normal capillary refill Neurologic/Psych: alert, normal mood/affect, oriented x 3 Skin: normal color, no jaundice, warm/dry, no rash Laboratory Results Last 24 Hours Test 02/15/18 02:20 02/15/18 02:27 02/15/18 02:57 02/15/18 06:10 White Blood Count 5.59 K/uL Red Blood Count 3.64 M/uL Hemoglobin 10.4 g/dL 11.1 g/dL Hematocrit 31.5 % 33.0 % Mean Corpuscular Volume 86.5 fL Mean Corpuscular Hemoglobin 28.6 pg Mean Corpuscular Hemoglobin Concent 33.0 g/dl Platelet Count 288 K/uL Mean Platelet Volume 9.2 fL Neutrophils (%) (Auto) 61.5 % Lymphocytes (%) (Auto) 26.1 % Monocytes (%) (Auto) 8.1 % Eosinophils (%) (Auto) 3.4 % Basophils (%) (Auto) 0.5 % Neutrophils # (Auto) 3.44 K/uL Lymphocytes # (Auto) 1.46 K/uL Monocytes # (Auto) 0.45 K/uL Eosinophils # (Auto) 0.19 K/uL Basophils # (Auto) 0.03 K/uL RDW Standard Deviation 41.7 fL RDW Coefficient of Variation 13.0 % Immature Granulocyte % (Auto) 0.4 % Immature Granulocyte # (Auto) 0.02 K/uL Sodium Level 135 mmol/L Potassium Level 3.8 mmol/L Chloride Level 107 mmol/L Carbon Dioxide Level 24 mmol/L Anion Gap 4.0 mmol/L 17.0 mmol/L Blood Urea Nitrogen 20 mg/dl Creatinine 1.08 mg/dl Est Creatinine Clear Calc Drug Dose 77.9 ml/min Estimated GFR () 84.8 Estimated GFR (Non- 73.2 BUN/Creatinine Ratio 18.3 Random Glucose 163 mg/dl Estimated Average Glucose 114 mg/dl Hemoglobin A1c 5.6 % Calcium Level 8.8 mg/dl Magnesium Level 1.8 mg/dl Total Bilirubin 0.3 mg/dl Aspartate Amino Transf (AST/SGOT) 19 U/L Alanine Aminotransferase (ALT/SGPT) 32 U/L Alkaline Phosphatase 76 U/L Total Protein 5.8 gm/dl Albumin 2.9 gm/dl Globulin 2.9 gm/dl Albumin/Globulin Ratio 1.0 Thyroid Stimulating Hormone (TSH) 3.160 uIu/ml Bedside Hemoglobin 9.9 g/dl Bedside Hematocrit 29 % Bedside Sodium 136 mEq/L Bedside Potassium 3.9 mEq/L Bedside Chloride 102 mEq/L Bedside Total CO2 22 mEq/l Bedside Blood Urea Nitrogen 19 mg/dl Bedside Creatinine 1.0 mg/dl Bedside Glucose (other) 162 mg/dl Bedside Ionized Calcium (Jarad) 1.25 mmol/l Lactic Acid Level 2.3 mmol/L 2.3 mmol/L Absolute Reticulocyte Count 0.06 10^6/uL Percent Reticulocyte Count 1.6 % Iron Level 40 mcg/dl Total Iron Binding Capacity 242 mcg/dl Transferrin 204 mg/dl Transferrin % Saturation 14 % Ferritin 137.2 ng/ml Vitamin B12 Level 260 pg/mL Folate 15.21 ng/mL Test 02/15/18 07:40 Prothrombin Time 10.6 SECONDS Prothromb Time International Ratio 1.0 Activated Partial Thromboplast Time 25.3 SECONDS Partial Thromboplastin Ratio 1.0 Impression Patient is a 62 year old male with rectal bleeding and CT suggesting diverticulitis yesterday. He has a stable Hb/Hct, no further bleeding and denies abdominal pain. The CT finding of brain mass is more urgent and likely the cause of his syncope. Plan 1. Would finish 10 days of cipro/flagyl for diverticulitis. 2. Would defer EGD/Colonoscopy. In fact, current diverticulitis is a contraindication to colonosocpy. 3. If bleeding recurs as an OP, then would refer pt back to [facility] to repeat colonoscopy. Hx of fairly recent EGD/Colonoscopy makes a primary GI cancer unlikely. 4. GI will watch peripherally. Please contact us if GI bleeding recurs. I saw and evaluated the patient. We are consulted for a question with regard to scant hematochezia. The patient reports having one episode yesterday that has since resolved. His CT does show evidence of inflammatory changes within the colo (consistent with diverticulitis) Physical examination No obvious distress No abdominal tenderness Impression: Patient with scant hematochezia with a recent colonoscopy. At this time a repeat examination is probably not necessary. I would suggest a 10 day course of antibiotic coverage given the question of diverticulitis. Should the patient have recurrent hematochezia repeat colonoscopy may be beneficial. He can certainly follow up with our office or his regular GI provider for any further questions or concerns.
--- NOTE | 2018-02-15 13:03 | DIAGNOSTIC IMAGING REPORT ---
MRI OF THE BRAIN AND PITUITARY WITH AND WITHOUT CONTRAST CLINICAL HISTORY: Sellar mass. COMPARISON STUDY: Head CT February 15, 2018. TECHNIQUE: Utilizing a 1.5 Lili magnet and dedicated coil, multiplanar, multiecho imaging of the brain was performed pre and postcontrast administration within thin cut imaging through the sellar region. Postcontrast imaging through the sellar region was performed utilizing dynamic enhancement. Injection of 8.6 cc of Gadavist IV was uneventful. FINDINGS: There are no foci of restricted diffusion. No acute intracranial hemorrhage is present. Ventricular system is normal. Basilar cisterns are patent. There are no extra-axial collections. Note is made of a 1.6 cm nonenhancing T2 hyperintense lesion within the right parotid gland. Note is made of a sellar mass with suprasellar extension measures 3.6 x 2.5 x 3.2 cm. This results in bony expansion of the sella with bony remodeling. There is no definite bony destruction. This abuts the bilateral cavernous carotids. There may be bilateral cavernous sinus involvement. This lesion abuts the left inferior aspect of the optic chiasm. This finding corresponds to the lesion shown on prior head CT. No additional intracranial masses are present. A few punctate white matter T2 hyperintense foci suggest mild small vessel disease. IMPRESSION: 1. No acute intracranial findings. 2. 3.6 x 2.5 x 3.2 cm sellar mass with suprasellar extension with associated bony expansion and remodeling of the sella. This mass abuts the bilateral cavernous carotids which raises the possibility of bilateral cavernous sinus involvement. The lesion also abuts the left inferior aspect of the optic chiasm. 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 Electronically signed by: Jamir Lebron M.D. 02/15/2018 1:02 PM Dictated Date/Time: 02/15/2018 12:52 PM
[2018-02-15 13:08] LABS: HEMATOCRIT 28.3 % (42-52); HEMOGLOBIN 9.8 g/dL (14.0-18.0)
--- NOTE | 2018-02-15 13:29 | Progress Note ---
Internal Med Progress Note Date of Service: February 15, 2018. Provider Documentation: SUBJECTIVE: Patient was seen this AM after returning from brain MRI imaging. Imaging supportive of pituitary adenoma which was initially seen on Head CT. Hospitalist physician have notified and discussed the case with endocrinology Dr. Steinberg and neurosurgery Dr. Flores at [facility] in [place]. Both specialists have made recommendations but that despite the size of the pituitary adenoma, the specialists recommend further outpatient evaluation after endocrine labs performed and that there is no immediate surgical interventions at this time. Patient denies headache or changes in vision or changes in motor strength OBJECTIVE: Exam: General- no acute distres Eyes- EOMI, no gross visual field deficits on my exam ENT- hearing grossly normal Neck- no JVD Lungs- Clear to auscultation bilaterally, no wheezing Heart- regular rate Abdomen- soft, nontender, positive bowel sounds Extremities- no edema Neuro- awake and alert, ambulatory, no focal neurological deficits on my exam ASSESSMENT & PLAN: 62 year old male with rectal bleeding and CT suggesting diverticulitis on and was sent home from the ED with ciprofloxacin and flagyl and then subsequently had syncopal episode at home and during the syncope workup 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 Findings consistent with acute uncomplicated diverticulitis at the proximal sigmoid colon. No extraluminal gas or abscess. 2. 6 mm solid nodule at the left lower lobe. Follow-up per [employer] 2017 recommendations below. Brain MRI 3.6 x 2.5 x 3.2 cm sellar mass with suprasellar extension with associated bony expansion and remodeling of the sella. This mass abuts the bilateral cavernous carotids which raises the possibility of bilateral cavernous sinus involvement. The lesion also abuts the left inferior aspect of the optic chiasm. The imaging characteristics strongly favor a pituitary macroadenoma Assessment and Plan Diverticulitis -Gastroenterology recommends that patient finish 10 days of cipro/flagyl for diverticulitis; current diverticulitis is a contraindication to colonoscopy; patient had recent EGD/Colonoscopy with [facility] -Diet as tolerated -will remain as inpatient under hospitalist service for further monitoring of symptoms or bleeding Syncope -there is pituitary macroadenoma but it is unclear whether this is cause of syncope. given size of the macroadenoma the outreach team member have reasoned that patient must have had this tumor for years -possible the syncope was secondary to blood loss vs vasovagal - EEG normal, Echocardiogram normal -patient has not had telemetry events to date, remain on telemetry for now as inpatient Pituitary Macroadenoma -discussed the case with endocrinology Dr. Steinberg of [facility] in [place] and he recommended obtaining full thyroid panel, prolactin, growth hormone, IGF1, ACTH, cortsiple, FSH , LH levels, alpha subunit -discussed the case with neurosurgery Dr. Flores of [facility] in [place] and read back to him the report that the the lesion also abuts the left inferior aspect of the optic chiasm but patient has no obvious visual field deficits, Dr. lFores recommends outpatient clinic followup with neuroendocrine clinic at [facility] in [place] within a week but no immediate need for surgery at this time -inpatient Neurology service also asked to follow with the patient while patient is admitted -No obvious motor deficits but PT/OT also requested 6 mm solid nodule at the left lower lobe: As per Fleischner criteria for incidental nodule Single nodule; size < 6 mm * Low risk patients: No routine follow-up * High risk patients: Optional CT at 12 months Single nodule; size 6-8 mm * Low risk patients: CT at 6-12 months, then consider CT at 18-24 months * High risk patients: CT at 6-12 months, then at 18-24 months 1) These guidelines apply to incidental nodules. These guidelines do NOT apply to patients younger than 35 years, immunocompromised patients, or patients with cancer. 2) Risk categories: * Low risk patients: Minimal or absent history of smoking and/or other known risk factors * High risk patients: History of smoking, exposure to other carcinogens, emphysema, fibrosis, upper lobe location, family history of lung cancer, etc. 3) If a nodule up to 8 mm is partly solid or is ground glass, further follow-up is required after 24 months to exclude possible slow growing adenocarcinoma. 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 and exposed to karen, he has previous history of smoking and denies smoking in years, Hospital doctor recommends that he follows with primary doctor to get repeat CT imaging as per Fleischner criteria as a high risk patient DVT ppx: SCDs Vital Signs: Date Time Temp Pulse Resp B/P (MAP) Pulse Ox O2 Delivery O2 Flow Rate FiO2 02/15/18 13:00 100 Room Air 02/15/18 08:00 100 Room Air 02/15/18 06:45 36.4 62 17 111/74 (86) 100 Room Air 02/15/18 04:41 36.5 66 20 124/70 Room Air 02/15/18 04:23 36.5 60 21 95/70 96 02/15/18 04:01 95/70 02/15/18 03:43 60 21 96 Room Air 02/15/18 03:34 96/66 02/15/18 03:13 59 16 99 02/15/18 03:08 109/70 02/15/18 03:07 58 18 109/70 98 Room Air 02/15/18 03:01 94/68 02/15/18 02:46 101/71 02/15/18 02:45 58 18 101/71 98 Room Air 02/15/18 02:43 59 24 99 02/15/18 02:32 99/64 02/15/18 02:31 02/15/18 02:27 92/65 02/15/18 02:19 36.5 57 18 95/56 96 Room Air Lab Results: Results Past 24 Hours Test 02/15/18 02:20 02/15/18 02:27 02/15/18 02:57 02/15/18 06:10 Range/Units White Blood Count 5.59 4.8-10.8 K/uL Red Blood Count 3.64 4.7-6.1 M/uL Hemoglobin 10.4 11.1 14.0-18.0 g/dL Hematocrit 31.5 33.0 42-52 % Mean Corpuscular Volume 86.5 80-100 fL Mean Corpuscular Hemoglobin 28.6 25-34 pg Mean Corpuscular Hemoglobin Concent 33.0 32-36 g/dl Platelet Count 288 130-400 K/uL Mean Platelet Volume 9.2 7.4-10.4 fL Neutrophils (%) (Auto) 61.5 % Lymphocytes (%) (Auto) 26.1 % Monocytes (%) (Auto) 8.1 % Eosinophils (%) (Auto) 3.4 % Basophils (%) (Auto) 0.5 % Neutrophils # (Auto) 3.44 1.4-6.5 K/uL Lymphocytes # (Auto) 1.46 1.2-3.4 K/uL Monocytes # (Auto) 0.45 0.11-0.59 K/uL Eosinophils # (Auto) 0.19 0-0.5 K/uL Basophils # (Auto) 0.03 0-0.2 K/uL RDW Standard Deviation 41.7 36.4-46.3 fL RDW Coefficient of Variation 13.0 11.5-14.5 % Immature Granulocyte % (Auto) 0.4 % Immature Granulocyte # (Auto) 0.02 0.00-0.02 K/uL Sodium Level 135 136-145 mmol/L Potassium Level 3.8 3.5-5.1 mmol/L Chloride Level 107 98-107 mmol/L Carbon Dioxide Level 24 21-32 mmol/L Anion Gap 4.0 17.0 16-25 mmol/L Blood Urea Nitrogen 20 7-18 mg/dl Creatinine 1.08 0.60-1.40 mg/dl Est Creatinine Clear Calc Drug Dose 77.9 ml/min Estimated GFR () 84.8 Estimated GFR (Non- 73.2 BUN/Creatinine Ratio 18.3 10-20 Random Glucose 163 70-99 mg/dl Estimated Average Glucose 114 mg/dl Hemoglobin A1c 5.6 4.5-5.6 % Calcium Level 8.8 8.5-10.1 mg/dl Magnesium Level 1.8 1.8-2.4 mg/dl Total Bilirubin 0.3 0.2-1 mg/dl Aspartate Amino Transf (AST/SGOT) 19 15-37 U/L Alanine Aminotransferase (ALT/SGPT) 32 12-78 U/L Alkaline Phosphatase 76 45-117 U/L Total Protein 5.8 6.4-8.2 gm/dl Albumin 2.9 3.4-5.0 gm/dl Globulin 2.9 2.5-4.0 gm/dl Albumin/Globulin Ratio 1.0 0.9-2 Thyroid Stimulating Hormone (TSH) 3.160 0.300-4.500 uIu/ml Bedside Hemoglobin 9.9 14.0-18.0 g/dl Bedside Hematocrit 29 42-52 % Bedside Sodium 136 135-144 mEq/L Bedside Potassium 3.9 3.3-5.0 mEq/L Bedside Chloride 102 101-112 mEq/L Bedside Total CO2 22 24-31 mEq/l Bedside Blood Urea Nitrogen 19 7-18 mg/dl Bedside Creatinine 1.0 0.6-1.3 mg/dl Bedside Glucose (other) 162 70-99 mg/dl Bedside Ionized Calcium (Jarad) 1.25 1.12-1.32 mmol/l Lactic Acid Level 2.3 2.3 0.4-2.0 mmol/L Absolute Reticulocyte Count 0.06 0.02-0.10 10^6/uL Percent Reticulocyte Count 1.6 0.5-2.0 % Iron Level 40 35-175 mcg/dl Total Iron Binding Capacity 242 250-450 mcg/dl Transferrin 204 200-360 mg/dl Transferrin % Saturation 14 20-50 % Ferritin 137.2 8.0-388.0 ng/ml Vitamin B12 Level 260 211-911 pg/mL Folate 15.21 >5.38 ng/mL Prolactin 18.84 ng/mL Test 02/15/18 07:40 02/15/18 12:49 02/15/18 12:57 Range/Units Prothrombin Time 10.6 9.0-12.0 SECONDS Prothromb Time International Ratio 1.0 0.9-1.1 Activated Partial Thromboplast Time 25.3 21.0-31.0 SECONDS Partial Thromboplastin Ratio 1.0 Hemoglobin 9.8 14.0-18.0 g/dL Hematocrit 28.3 42-52 % Free Thyroxine 0.61 0.80-1.60 ng/dl Thyroxine (T4) 3.9 4.5-10.9 mcg/dl Total Triiodothyronine 1.01 0.60-1.81 ng/ml Follicle Stimulating Hormone 1.61 IU/L Luteinizing Hormone 0.23 IU/L Lactic Acid Level 1.2 0.4-2.0 mmol/L
[2018-02-15 13:41] LABS: THYROXINE (T4) 3.9 mcg/dl (4.5-10.9)
[2018-02-15 13:42] LABS: FOLLICLE STIMULAT HORMONE 1.61 IU/L; LUTEINIZING HORMONE 0.23 IU/L
--- NOTE | 2018-02-15 13:56 | Neurology Consultation ---
Neurology Consultation Date of Consultation: February 15, 2018. Attending Physician: Kolby Motta M.D. Primary Care Physician: No Doctor, Assigned Reason for Consultation: brain mass, syncope History of Present Illness Source: patient Anthony is a 62 year old male with no significant PMH chronic anemia. He presented on 02/14/2018 after having right lower abdominal pain, constipated, and rectal bleeding x [address] abdomen and pelvis showed diverticulitis and a 6 mm solid nodule in the left lower lobe. given Cipro and Flagyl and was sent home on antibiotics. At home, patient felt lightheaded,dizzy, had cold sweats, had 2 more bloody bowel movements, unwitnessed syncopal event in the TV room and found by his , incontinence. He was brought back to the hospital and was admitted for further work up. CT head was done due to fall and a sella mass was seen. denies CP, SOB, abdominal pain, weakness, numbness tingling, vision changes, nipple discharge, N, V. Past Medical/Surgical History Medical Problems: (1) Diverticulitis Status: Acute (2) Diverticulitis large intestine Status: Acute (3) Lower GI bleed Status: Acute Social History Drug Use: none Marital Status: Housing Status: lives with significant other Occupation Status: employed Allergies Coded Allergies: No Known Allergies (Unverified , 02/14/18) Current Inpatient Medications Current Inpatient Medications Medications (Trade) Dose Ordered Sig/Prabha Route Start Time Stop Time Status Last Admin Dose Admin Ceftriaxone Sodium 1 gm/ Dextrose 50 ml @ 100 mls/hr Q24H IV 02/15/18 05:00 02/25/18 04:59 02/15/18 05:14 100 MLS/HR Metronidazole 500 mg/Prmx 100 ml @ 100 mls/hr Q8H IV 02/15/18 06:00 02/25/18 05:59 02/15/18 05:59 100 MLS/HR Prochlorperazine Edisylate 5 mg/ Syringe 5 ml @ 5 mls/min Q6H PRN IV 02/15/18 04:15 03/17/18 04:14 Oxycodone/ Acetaminophen (Percocet 5-325mg Tab) 1 tab Q6H PRN PO 02/15/18 04:15 03/01/18 04:14 Morphine Sulfate (MoRPHine SULFATE INJ) 2 mg Q3H PRN IV 02/15/18 04:15 03/01/18 04:14 Acetaminophen (Tylenol Tab) 650 mg Q4H PRN PO 02/15/18 04:15 03/17/18 04:14 Nitroglycerin (Nitrostat Tab) 0.4 mg UD PRN SL 02/15/18 04:15 03/17/18 04:14 Multivitamins/ Minerals (Multivitamin W/ Minerals Tab) 1 tab DAILY PO 02/15/18 09:00 03/17/18 08:59 02/15/18 08:27 1 TAB Lorazepam (Ativan Inj) 0.5 mg Q4H PRN IV 02/15/18 05:00 03/17/18 04:59 Physical Exam Vital Signs (Past 24 Hrs): Date Time Temp Pulse Resp B/P (MAP) Pulse Ox O2 Delivery O2 Flow Rate FiO2 02/15/18 13:00 100 Room Air 02/15/18 08:00 100 Room Air 02/15/18 06:45 36.4 62 17 111/74 (86) 100 Room Air 02/15/18 04:41 36.5 66 20 124/70 Room Air 02/15/18 04:23 36.5 60 21 95/70 96 02/15/18 04:01 95/70 02/15/18 03:43 60 21 96 Room Air 02/15/18 03:34 96/66 02/15/18 03:13 59 16 99 02/15/18 03:08 109/70 02/15/18 03:07 58 18 109/70 98 Room Air 02/15/18 03:01 94/68 02/15/18 02:46 101/71 02/15/18 02:45 58 18 101/71 98 Room Air 02/15/18 02:43 59 24 99 02/15/18 02:32 99/64 02/15/18 02:31 02/15/18 02:27 92/65 02/15/18 02:19 36.5 57 18 95/56 96 Room Air Physical Exam: Constitutional: appearance nourished, healthy and normal Ears, Nose, Mouth and Throat: mucous membranes moist, no injection and skin normal, eyes normal Cardiovascular: normal S-1 and S-2 and regular rate and rhythm Respiratory: clear to auscultation (CTA) and no rales, rhonchi or wheeze Musculoskeletal: no peripheral edema and good distal pulses Skin: no stigmata of neurocutaneous disease noted and normal and intact Eyes: extraocular muscles intact (EOMI) and pupils equal, round and reactive to light (PERRL) gross visual genao intact NEUROLOGIC EXAMINATION: Mental status: Alert and interactive Oriented to full date and location Oriented to person Speech fluent with no evidence of aphasia Cranial Nerves smile eye brow raise symmetric Reflexes: Deep tendon reflexes were symmetrical and graded 2/5 brisk LE reflexes. Plantar responses were flexor. Sensory: no sensory deficits, to light touch vibration Coordination: finger to nose no bi pass Gait/Stance: Posture lying in bed Motor: Negative for pronator drift of out stretched arms with eyes closed. Strength: biceps triceps hand rack pusher intrinsics 5/5 bilaterally, hip flex patellar plantar flex ext 5/5 bilaterally Laboratory Results Past 24 Hours: 02/15/18 02:20 Red Blood Count 3.64, Mean Corpuscular Volume 86.5, Mean Corpuscular Hemoglobin 28.6, Mean Corpuscular Hemoglobin Concent 33.0, Mean Platelet Volume 9.2, Neutrophils (%) (Auto) 61.5, Lymphocytes (%) (Auto) 26.1, Monocytes (%) (Auto) 8.1, Eosinophils (%) (Auto) 3.4, Basophils (%) (Auto) 0.5, Neutrophils # (Auto) 3.44, Lymphocytes # (Auto) 1.46, Monocytes # (Auto) 0.45, Eosinophils # (Auto) 0.19, Basophils # (Auto) 0.03 02/15/18 12:49 02/15/18 02:20 Test 02/15/18 02:20 02/15/18 02:27 02/15/18 06:10 02/15/18 07:40 White Blood Count 5.59 K/uL (4.8-10.8) Red Blood Count 3.64 M/uL (4.7-6.1) Hemoglobin 10.4 g/dL (14.0-18.0) Hematocrit 31.5 % (42-52) Mean Corpuscular Volume 86.5 fL (80-100) Mean Corpuscular Hemoglobin 28.6 pg (25-34) Mean Corpuscular Hemoglobin Concent 33.0 g/dl (32-36) Platelet Count 288 K/uL (130-400) Mean Platelet Volume 9.2 fL (7.4-10.4) Neutrophils (%) (Auto) 61.5 % Lymphocytes (%) (Auto) 26.1 % Monocytes (%) (Auto) 8.1 % Eosinophils (%) (Auto) 3.4 % Basophils (%) (Auto) 0.5 % Neutrophils # (Auto) 3.44 K/uL (1.4-6.5) Lymphocytes # (Auto) 1.46 K/uL (1.2-3.4) Monocytes # (Auto) 0.45 K/uL (0.11-0.59) Eosinophils # (Auto) 0.19 K/uL (0-0.5) Basophils # (Auto) 0.03 K/uL (0-0.2) RDW Standard Deviation 41.7 fL (36.4-46.3) RDW Coefficient of Variation 13.0 % (11.5-14.5) Immature Granulocyte % (Auto) 0.4 % Immature Granulocyte # (Auto) 0.02 K/uL (0.00-0.02) Est Creatinine Clear Calc Drug Dose 77.9 ml/min Estimated GFR () 84.8 Estimated GFR (Non- 73.2 BUN/Creatinine Ratio 18.3 (10-20) Estimated Average Glucose 114 mg/dl Hemoglobin A1c 5.6 % (4.5-5.6) Calcium Level 8.8 mg/dl (8.5-10.1) Magnesium Level 1.8 mg/dl (1.8-2.4) Total Bilirubin 0.3 mg/dl (0.2-1) Aspartate Amino Transf (AST/SGOT) 19 U/L (15-37) Alanine Aminotransferase (ALT/SGPT) 32 U/L (12-78) Alkaline Phosphatase 76 U/L (45-117) Total Protein 5.8 gm/dl (6.4-8.2) Albumin 2.9 gm/dl (3.4-5.0) Globulin 2.9 gm/dl (2.5-4.0) Albumin/Globulin Ratio 1.0 (0.9-2) Thyroid Stimulating Hormone (TSH) 3.160 uIu/ml (0.300-4.500) Bedside Hemoglobin 9.9 g/dl (14.0-18.0) Bedside Hematocrit 29 % (42-52) Bedside Sodium 136 mEq/L (135-144) Bedside Potassium 3.9 mEq/L (3.3-5.0) Bedside Chloride 102 mEq/L (101-112) Bedside Total CO2 22 mEq/l (24-31) Anion Gap 17.0 mmol/L (16-25) Bedside Blood Urea Nitrogen 19 mg/dl (7-18) Bedside Creatinine 1.0 mg/dl (0.6-1.3) Bedside Glucose (other) 162 mg/dl (70-99) Bedside Ionized Calcium (Jarad) 1.25 mmol/l (1.12-1.32) Absolute Reticulocyte Count 0.06 10^6/uL (0.02-0.10) Percent Reticulocyte Count 1.6 % (0.5-2.0) Iron Level 40 mcg/dl (35-175) Total Iron Binding Capacity 242 mcg/dl (250-450) Transferrin 204 mg/dl (200-360) Transferrin % Saturation 14 % (20-50) Ferritin 137.2 ng/ml (8.0-388.0) Vitamin B12 Level 260 pg/mL (211-911) Folate 15.21 ng/mL (>5.38) Prolactin 18.84 ng/mL Prothrombin Time 10.6 SECONDS (9.0-12.0) Prothromb Time International Ratio 1.0 (0.9-1.1) Activated Partial Thromboplast Time 25.3 SECONDS (21.0-31.0) Partial Thromboplastin Ratio 1.0 Test 02/15/18 12:49 02/15/18 12:57 Free Thyroxine 0.61 ng/dl (0.80-1.60) Lactic Acid Level 1.2 mmol/L (0.4-2.0) Imaging This EEG is essentially normal during wakefulness, drowsiness and after photic stimulation reveals no evidence for focal or generalized encephalopathy and no evidence for potentially epileptogenic activity. MRI with and without brain- No acute intracranial findings. 3.6 x 2.5 x 3.2 cm sellar mass with suprasellar extension with associated bony expansion and remodeling of the sella. This mass abuts the bilateral cavernous carotids which raises the possibility of bilateral cavernous sinus involvement. The lesion also abuts the left inferior aspect of the optic chiasm. 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 CT head- No acute intracranial findings. Sellar mass with suprasellar extension , measuring approximately 3.2 x 2.6 x 3.1 cm. A macroadenoma is favored. A meningioma or craniopharyngioma could appear similar. An aneurysm is within the differential although considered less likely. A pituitary protocol MRI is recommended as well as an MRA of the intracranial circulation to exclude aneurysm. TTE- The left ventricle is normal in size. * The left ventricular wall motion is normal. * Left ventricular systolic function is normal. * Ejection Fraction = 60-65%. * There is mild concentric left ventricular hypertrophy. * There is no significant valvular disease NO ASD Impression 62 year old male with know chronic anemia with new found pituitary mass, rectal bleed with syncope, and lung nodule Plan 1. MRI brain- macroadenoma pituitary 2. lung nodule - pulmonary follow up 3. rectal bleed- GI on board 4. endocrine labs ordered 5. neurosurgery and endocrine contacted in [place] will have follow for further evaluation 6. will need a formal ophthalmology exam with visual genao prior to OP in [place] 7. EEG no seizure activity noted 8. TTE- No ASD 9. will sign off for now no neurology follow up needed I have seen and discussed above patient with Dr Misael Vega, neurology Patient seen interviewed and examined imaging and eeg reviewed as well diagnosis is that of vagal syncope and incidental and asymptomatic pituitary macroadenoma workup underway rx of diverticulitis [place] and images sent jaky the [place] [facility] He will need automated visual field testing and this can be arranged outpatient prior to visit in [place] and at this point neurology will sign off no need for anticonvulsants or follow up in our clinic Misael Vega MD
--- NOTE | 2018-02-15 14:04 | EMERGENCY ROOM VISIT NOTE ---
History First contact with patient: 02:15 Chief Complaint: SYNCOPE Stated Complaint: LGI BLEED, SYNCOPE Nursing Triage Summary: Patient presents BLS from home for evaluation of syncopal episode. Patient was d/c from [facility] ED last night around 2330 with dx of diverticulitis. Patient states when he got home he had a bloody BM and passed out. Denies hitting head. History of Present Illness The patient is a 62 year old male who presents to the Emergency Room with complaints of a syncopal episode. Patient was seen in the emergency department earlier this evening by myself. He was diagnosed with an uncomplicated diverticulitis and a lower GI bleed. Hemoglobin was stable. Patient's bleeding was thought secondary to a constipated, hard BM early in the evening subsequently followed by diarrhea 2. Patient complained of bright red blood in the toilet. Patient had no further BMs in the emergency department. Upon arrival home, he did have a bloody bowel movements and after "turning the corner to come out of the bathroom and "passed out onto the floor." His family called the ambulance. The patient initially declined transport to the hospital , but by my medical command, he was convinced that it is in his best interest to be reevaluated. Patient denies any complaints at this time. Review of Systems See HPI for pertinent positives & negatives. A total of 10 systems reviewed and were otherwise negative. Past Medical/Surgical History Medical Problems: (1) Inguinal hernia (2) LGI bleed (3) LGI bleed (4) Sciatica (5) Syncope Family History Cancer Gallbladder disease Heart disease Hypertension Social History Smoking Status: Never Smoker Alcohol Use: none Drug Use: none Marital Status: Housing Status: lives with significant other Occupation Status: employed Current/Historical Medications Scheduled Ciprofloxacin Hcl (Cipro), 500 MG PO BID Ferrous Sulfate (Iron), 325 MG PO DAILY Metronidazole (Flagyl), 500 MG PO TID Multiple Vitamins W/ Minerals (Multi For Him 50+), 1 TAB PO DAILY Scheduled PRN Acetaminophen (Tylenol), 1,000 MG PO DIRECTED PRN for Pain Aspirin (Aspirin Ec), 325 MG PO DIRECTED PRN for Pain Naproxen (Aleve), 220 MG PO DIRECTED PRN for Pain Physical Exam Vital Signs Date Time Temp Pulse Resp B/P (MAP) Pulse Ox O2 Delivery O2 Flow Rate FiO2 02/15/18 04:01 95/70 5/4/18 03:43 60 21 96 Room Air 02/15/18 03:34 96/66 02/15/18 03:13 59 16 99 02/15/18 03:08 109/70 02/15/18 03:07 58 18 109/70 98 Room Air 02/15/18 03:01 94/68 02/15/18 02:46 101/71 02/15/18 02:45 58 18 101/71 98 Room Air 02/15/18 02:43 59 24 99 02/15/18 02:32 99/64 02/15/18 02:31 02/15/18 02:27 92/65 02/15/18 02:19 36.5 57 18 95/56 96 Room Air Physical Exam Vital signs reviewed. Noted to be hypotensive. General: Well-appearing 62-year-old male, in no significant distress. HEENT: No scleral icterus, PERRLA, neck supple. Atraumatic. Cardiovascular: Regular rate and rhythm, no extra sounds. Pulmonary: Clear to auscultation bilaterally, normal work of breathing. Abdomen: Soft, nontender, nondistended, positive bowel sounds. Musculoskeletal: Atraumatic, no peripheral edema. Neurologic: Patient awake alert and oriented x 3, full strength in all 4 extremities. Cranial nerves 2 through 12 grossly intact. Rectal: Deferred as performed earlier in the evening. Guaiac positive dark blood at that time. No melena. Skin: Warm, dry, no rash Medical Decision & Procedures Laboratory Results 02/15/18 02:20 Red Blood Count 3.64, Mean Corpuscular Volume 86.5, Mean Corpuscular Hemoglobin 28.6, Mean Corpuscular Hemoglobin Concent 33.0, Mean Platelet Volume 9.2, Neutrophils (%) (Auto) 61.5, Lymphocytes (%) (Auto) 26.1, Monocytes (%) (Auto) 8.1, Eosinophils (%) (Auto) 3.4, Basophils (%) (Auto) 0.5, Neutrophils # (Auto) 3.44, Lymphocytes # (Auto) 1.46, Monocytes # (Auto) 0.45, Eosinophils # (Auto) 0.19, Basophils # (Auto) 0.03 02/15/18 02:20 Test 02/15/18 02:02/15/18 02:27 White Blood Count 5.59 K/uL (4.8-10.8) Red Blood Count 3.64 M/uL (4.7-6.1) Hemoglobin 10.4 g/dL (14.0-18.0) Hematocrit 31.5 % (42-52) Mean Corpuscular Volume 86.5 fL (80-100) Mean Corpuscular Hemoglobin 28.6 pg (25-34) Mean Corpuscular Hemoglobin Concent 33.0 g/dl (32-36) Platelet Count 288 K/uL (130-400) Mean Platelet Volume 9.2 fL (7.4-10.4) Neutrophils (%) (Auto) 61.5 % Lymphocytes (%) (Auto) 26.1 % Monocytes (%) (Auto) 8.1 % Eosinophils (%) (Auto) 3.4 % Basophils (%) (Auto) 0.5 % Neutrophils # (Auto) 3.44 K/uL (1.4-6.5) Lymphocytes # (Auto) 1.46 K/uL (1.2-3.4) Monocytes # (Auto) 0.45 K/uL (0.11-0.59) Eosinophils # (Auto) 0.19 K/uL (0-0.5) Basophils # (Auto) 0.03 K/uL (0-0.2) RDW Standard Deviation 41.7 fL (36.4-46.3) RDW Coefficient of Variation 13.0 % (11.5-14.5) Immature Granulocyte % (Auto) 0.4 % Immature Granulocyte # (Auto) 0.02 K/uL (0.00-0.02) Est Creatinine Clear Calc Drug Dose 77.9 ml/min Estimated GFR () 84.8 Estimated GFR (Non- 73.2 BUN/Creatinine Ratio 18.3 (10-20) Estimated Average Glucose 114 mg/dl Hemoglobin A1c 5.6 % (4.5-5.6) Calcium Level 8.8 mg/dl (8.5-10.1) Magnesium Level 1.8 mg/dl (1.8-2.4) Total Bilirubin 0.3 mg/dl (0.2-1) Aspartate Amino Transf (AST/SGOT) 19 U/L (15-37) Alanine Aminotransferase (ALT/SGPT) 32 U/L (12-78) Alkaline Phosphatase 76 U/L (45-117) Total Protein 5.8 gm/dl (6.4-8.2) Albumin 2.9 gm/dl (3.4-5.0) Globulin 2.9 gm/dl (2.5-4.0) Albumin/Globulin Ratio 1.0 (0.9-2) Thyroid Stimulating Hormone (TSH) 3.160 uIu/ml (0.300-4.500) Bedside Hemoglobin 9.9 g/dl (14.0-18.0) Bedside Hematocrit 29 % (42-52) Bedside Sodium 136 mEq/L (135-144) Bedside Potassium 3.9 mEq/L (3.3-5.0) Bedside Chloride 102 mEq/L (101-112) Bedside Total CO2 22 mEq/l (24-31) Anion Gap 17.0 mmol/L (16-25) Bedside Blood Urea Nitrogen 19 mg/dl (7-18) Bedside Creatinine 1.0 mg/dl (0.6-1.3) Bedside Glucose (other) 162 mg/dl (70-99) Bedside Ionized Calcium (Jarad) 1.25 mmol/l (1.12-1.32) Medications Administered Medications (Trade) Dose Ordered Sig/Prabha Route Start Time Stop Time Status Last Admin Dose Admin Sodium Chloride 1,000 ml @ 999 mls/hr Q1H1M STAT IV 02/15/18 02:15 02/15/18 03:15 DC 02/15/18 02:30 999 MLS/HR Sodium Chloride 1,000 ml @ 200 mls/hr Q5H STAT IV 02/15/18 02:32 02/15/18 03:56 DC 02/15/18 02:38 200 MLS/HR ECG Per My Interpretation Indication: syncope Rate (beats per minute): 57 Rhythm: normal sinus Findings: nonspecific-ST abn (Inferior) Change: no significant change (02/14/18) Medical Decision The differential diagnosis of this patient's presentation includes cardiac arrhythmia, anemia, GI bleed, infectious etiology, dehydration This patient was evaluated and appeared to be in no significant distress. Is found to be hypotensive. I-STAT was run and the patient is found to have a hemoglobin of 9.9. Patient was hydrated with normal saline solution. Formal laboratory work reveals a hemoglobin of 10.4. The patient's case was discussed with the hospitalist service given the details of the visit preceding. Dr. Orlando David will evaluate the patient for admission. Patient is aware of the plan and agrees. Blood Pressure Screening Patient's blood pressure: Low blood pressure Referred to the hospitalist for further management. Impression Primary Impression: Syncope Additional Impressions: LGI bleed Acute diverticulitis Departure Information Dispostion Admitted as an inpatient Condition GOOD Referrals No Doctor, Assigned (PCP) Forms HOME CARE DOCUMENTATION FORM, IMPORTANT VISIT INFORMATION Patient Instructions [facility] Problem Qualifiers
--- NOTE | 2018-02-15 17:47 | DIAGNOSTIC IMAGING REPORT ---
R FOOT MIN 3 VIEWS ROUTINE HISTORY: 62 years-old Male right foot pain, rule out fracture acute right foot pain COMPARISON: None available TECHNIQUE: 3 views of the right foot FINDINGS: Moderate degenerative changes with prominent lateral spurring about the first MTP joint. Mild degenerative changes about the interphalangeal joints. Mild degenerative changes about the midfoot with small plantar and moderate Achilles enthesophytes. Mild forefoot soft tissue swelling without opaque foreign body. No acute fracture or dislocation. IMPRESSION: 1. Mild forefoot soft tissue swelling without acute fracture or dislocation. 2. Degenerative changes as above. The above report was generated using voice recognition software. It may contain grammatical, syntax or spelling errors. Electronically signed by: David Garcia M.D. 02/15/2018 5:46 PM Dictated Date/Time: 02/15/2018 5:44 PM
[2018-02-16 03:31] VITALS: BP 127/85; PULSE 62; TEMP 36.7; O2SAT 98
[2018-02-16] MEDS: CEFTRIAXONE SOD INJ 1 GM in DEXTROSE 5% ADD-VANTAGE 50ML 50 ML IV SCH (05:28)
[2018-02-16] MEDS: METRONIDAZOLE / NSS 500 MG in PREMIXED NSS 100 ML IV SCH ×2 (05:28→13:59)
[2018-02-16 07:55] LABS: BASO % 0.7 %; BASO ABS # 0.04 K/uL (0-0.2); EOS % 6.5 %; EOS ABS # 0.38 K/uL (0-0.5); HEMATOCRIT 29.9 % (42-52); HEMOGLOBIN 10.1 g/dL (14.0-18.0); IG# 0.02 K/uL (0.00-0.02); LYMPH % 28.2 %; LYMPH ABS # 1.64 K/uL (1.2-3.4); MEAN CELL VOLUME 86.4 fL (80-100); MEAN CORPUSCULAR HEMOGLOBIN 29.2 pg (25-34); MEAN CORPUSCULAR HGB CONC 33.8 g/dl (32-36); MEAN PLATELET VOLUME 8.8 fL (7.4-10.4); MONO % 9.3 %; MONO ABS # 0.54 K/uL (0.11-0.59); NEUT ABS # 3.19 K/uL (1.4-6.5); PLATELET COUNT 271 K/uL (130-400); RED CELL DISTRIBUTION WIDTH CV 13.2 % (11.5-14.5); RED CELL DISTRIBUTION WIDTH SD 41.8 fL (36.4-46.3); WHITE BLOOD COUNT 5.81 K/uL (4.8-10.8)
[2018-02-16 08:01] VITALS: BP 104/69; PULSE 69; TEMP 36.8; O2SAT 97
[2018-02-16 08:31] LABS: CALCIUM 8.4 mg/dl (8.5-10.1); CREATININE 0.94 mg/dl (0.60-1.40)
[2018-02-16] MEDS: CEROVITE ADV FORMULA TAB PO SCH (09:28)
[2018-02-16] MEDS ORDERED: CIPROFLOXACIN 500 MG TAB PO SCH (13:45)
[2018-02-16 13:46] VITALS: BP 106/71; PULSE 65; TEMP 36.8; O2SAT 97
[2018-02-16] MEDS ORDERED: METR-163 PO (13:49)
[2018-02-16] MEDS ORDERED: CIPR1TAB10 PO (13:49)
--- NOTE | 2018-02-16 14:19 | Progress Note ---
Internal Med Progress Note Date of Service: February 16, 2018. Provider Documentation: SUBJECTIVE: Patient denies any blood in stool. Denies pain or weakness. OBJECTIVE: Exam: General- no acute distress Eyes- EOMI ENT- hearing grossly normal Neck- no JVD Lungs- Clear to auscultation bilaterally, no wheezing Heart- regular rate Abdomen- soft, nontender, positive bowel sounds Extremities- no edema Neuro- awake and alert ASSESSMENT & PLAN: 62 year old male with rectal bleeding and CT suggesting diverticulitis on and was sent home from the ED with ciprofloxacin and flagyl and then subsequently had syncopal episode at home with preceding symptom of diarrhea and possibly blood in the stool. 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 Findings consistent with acute uncomplicated diverticulitis at the proximal sigmoid colon. No extraluminal gas or abscess. 2. 6 mm solid nodule at the left lower lobe. Follow-up per [employer] 2017 recommendations below. Brain MRI 02/15/18 3.6 x 2.5 x 3.2 cm sellar mass with suprasellar extension with associated bony expansion and remodeling of the sella. This mass abuts the bilateral cavernous carotids which raises the possibility of bilateral cavernous sinus involvement. The lesion also abuts the left inferior aspect of the optic chiasm. The imaging characteristics strongly favor a pituitary macroadenoma Assessment and Plan Diverticulitis -Gastroenterology recommends that patient finish 10 days of cipro/flagyl for diverticulitis; current diverticulitis is a contraindication to colonoscopy; patient had recent EGD/Colonoscopy with [facility] -Patient is to finish course of ciprofloxacin and Flagyl by 02/23/18 Syncope -there is pituitary macroadenoma but it is unclear whether this is cause of syncope. given size of the macroadenoma the network account manager have reasoned that patient must have had this tumor for years -possible the syncope was secondary to blood loss vs vasovagal -EEG normal, Echocardiogram normal -no acute telemetry events Pituitary Macroadenoma -discussed the case with neurosurgery Dr. Flores of [facility] in [place] and read back to him the report that the the lesion also abuts the left inferior aspect of the optic chiasm but patient has no obvious visual field deficits, Dr. Flores recommends outpatient clinic followup with neuroendocrine clinic at [facility] in [place] within a week but no immediate need for surgery at this time -discussed the case with endocrinology Dr. Steinberg of [facility] in [place] and he recommended obtaining following labs with some lab values results TSH 3.16 which is normal, T4 is 3.9 and free T4 0.61 which are mildly low, T3 is 1.01) prolactin 18.84 which is above lab reference ranges for males as these values are 2.1 to 17.7 ng/ml growth hormone pending, IGF1 pending ACTH pending 8 AM cortisol is 16.4 24 hours urine cortisol collected FSH is 1.61 which is low normal in the lab reference ranges Normal Males 13-70 years 1.4 - 18.1 IU/L LH is 0.23 alpha subunit was also asked to be drawn but this is a sendout lab test and is pending results -inpatient Neurology service also asked to follow with the patient and no new recommendations other than outpatient visual field testing -No obvious motor deficits, patient performed well with physical therapy evaluation 6 mm solid nodule at the left lower lobe: As per Fleischner criteria for incidental nodule Single nodule; size < 6 mm * Low risk patients: No routine follow-up * High risk patients: Optional CT at 12 months Single nodule; size 6-8 mm * Low risk patients: CT at 6-12 months, then consider CT at 18-24 months * High risk patients: CT at 6-12 months, then at 18-24 months 1) These guidelines apply to incidental nodules. These guidelines do NOT apply to patients younger than 35 years, immunocompromised patients, or patients with cancer. 2) Risk categories: * Low risk patients: Minimal or absent history of smoking and/or other known risk factors * High risk patients: History of smoking, exposure to other carcinogens, emphysema, fibrosis, upper lobe location, family history of lung cancer, etc. 3) If a nodule up to 8 mm is partly solid or is ground glass, further follow-up is required after 24 months to exclude possible slow growing adenocarcinoma. 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, he has previous history of smoking and denies smoking in years, Hospital doctor recommends that he follows with primary doctor to get repeat CT imaging as per Fleischner criteria as a high risk patient Discharge Instructions and Plans Patient is to follow up with his primary care doctor for follow up of Diverticulitis, Pituitray Macroadenoma, Visual Field testing, Lung Nodule follow up Patient is to finish course of ciprofloxacin and Flagyl by 02/23/18 Patient is being referred to see Neuroendocrine in [facility] at [place] for Pituitary Macroadenoma Vital Signs: Date Time Temp Pulse Resp B/P (MAP) Pulse Ox O2 Delivery O2 Flow Rate FiO2 02/16/18 13:46 36.8 65 20 106/71 (83) 97 Room Air 02/16/18 12:00 Room Air 02/16/18 08:01 36.8 69 20 104/69 (81) 97 Room Air 02/16/18 08:00 Room Air 02/16/18 04:00 Room Air 02/16/18 03:31 36.7 62 16 127/85 (99) 98 Room Air 02/16/18 00:01 Room Air 02/15/18 23:20 36.7 62 18 119/75 (90) 96 Room Air 02/15/18 21:27 36.7 73 18 120/71 (87) 98 Room Air 02/15/18 20:00 Room Air 02/15/18 16:00 100 Room Air 02/15/18 15:16 36.7 68 16 117/71 (86) 96 Room Air Lab Results: Results Past 24 Hours Test 02/16/18 07:45 Range/Units White Blood Count 5.81 4.8-10.8 K/uL Red Blood Count 3.46 4.7-6.1 M/uL Hemoglobin 10.1 14.0-18.0 g/dL Hematocrit 29.9 42-52 % Mean Corpuscular Volume 86.4 80-100 fL Mean Corpuscular Hemoglobin 29.2 25-34 pg Mean Corpuscular Hemoglobin Concent 33.8 32-36 g/dl Platelet Count 271 130-400 K/uL Mean Platelet Volume 8.8 7.4-10.4 fL Neutrophils (%) (Auto) 55.0 % Lymphocytes (%) (Auto) 28.2 % Monocytes (%) (Auto) 9.3 % Eosinophils (%) (Auto) 6.5 % Basophils (%) (Auto) 0.7 % Neutrophils # (Auto) 3.19 1.4-6.5 K/uL Lymphocytes # (Auto) 1.64 1.2-3.4 K/uL Monocytes # (Auto) 0.54 0.11-0.59 K/uL Eosinophils # (Auto) 0.38 0-0.5 K/uL Basophils # (Auto) 0.04 0-0.2 K/uL RDW Standard Deviation 41.8 36.4-46.3 fL RDW Coefficient of Variation 13.2 11.5-14.5 % Immature Granulocyte % (Auto) 0.3 % Immature Granulocyte # (Auto) 0.02 0.00-0.02 K/uL Sodium Level 140 136-145 mmol/L Potassium Level 4.0 3.5-5.1 mmol/L Chloride Level 112 98-107 mmol/L Carbon Dioxide Level 23 21-32 mmol/L Anion Gap 6.0 3-11 mmol/L Blood Urea Nitrogen 11 7-18 mg/dl Creatinine 0.94 0.60-1.40 mg/dl Est Creatinine Clear Calc Drug Dose 89.5 ml/min Estimated GFR () 100.3 Estimated GFR (Non- 86.5 BUN/Creatinine Ratio 11.8 10-20 Random Glucose 100 70-99 mg/dl Calcium Level 8.4 8.5-10.1 mg/dl Cortisol AM Sample 16.40 4.30-22.40 mcg/dl Microbiology Results 02/15/18 C.difficile Toxin B Gene (PCR) - Final, Complete No C. difficile toxin B gene detected
--- NOTE | 2018-02-16 14:33 | Discharge Instructions ---
Discharge Instructions Date of Service February 16, 2018. Admission Reason for Admission: Lgi Bleed, Syncope Discharge Discharge Diagnosis / Problem: Syncope, Diverticulitis, Pituitary Macroadenoma , lung nodule Discharge Goals Goal(s): Improve function, Improve disease control, Learn about illness, Therapeutic intervention Activity Recommendations Activity Limitations: per Instructions/Follow-up section Shower/Bathe: no limitations . Instructions / Follow-Up Instructions / Follow-Up 62 year old male with rectal bleeding and CT suggesting diverticulitis on and was sent home from the ED with ciprofloxacin and flagyl and then subsequently had syncopal episode at home with preceding symptom of diarrhea and possibly blood in the stool. 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 Findings consistent with acute uncomplicated diverticulitis at the proximal sigmoid colon. No extraluminal gas or abscess. 2. 6 mm solid nodule at the left lower lobe. Follow-up per Blair [employer] 2017 recommendations below. Brain MRI 02/15/18 3.6 x 2.5 x 3.2 cm sellar mass with suprasellar extension with associated bony expansion and remodeling of the sella. This mass abuts the bilateral cavernous carotids which raises the possibility of bilateral cavernous sinus involvement. The lesion also abuts the left inferior aspect of the optic chiasm. The imaging characteristics strongly favor a pituitary macroadenoma Assessment and Plan Diverticulitis -Gastroenterology recommends that patient finish 10 days of cipro/flagyl for diverticulitis; current diverticulitis is a contraindication to colonoscopy; patient had recent EGD/Colonoscopy with [facility] -Patient is to finish course of ciprofloxacin and Flagyl by 02/23/18 Syncope -there is pituitary macroadenoma but it is unclear whether this is cause of syncope. given size of the macroadenoma the tower air traffic control specialist have reasoned that patient must have had this tumor for years -possible the syncope was secondary to blood loss vs vasovagal -EEG normal, Echocardiogram normal -no acute telemetry events Pituitary Macroadenoma -discussed the case with neurosurgery Dr. Flores of [facility] in [place] and read back to him the report that the the lesion also abuts the left inferior aspect of the optic chiasm but patient has no obvious visual field deficits, Dr. Flores recommends outpatient clinic followup with neuroendocrine clinic at [facility] in [place] within a week but no immediate need for surgery at this time -discussed the case with endocrinology Dr. Steinberg of [facility] in [place] and he recommended obtaining following labs with some lab values results TSH 3.16 which is normal, T4 is 3.9 and free T4 0.61 which are mildly low, T3 is 1.01) prolactin 18.84 which is above lab reference ranges for males as these values are 2.1 to 17.7 ng/ml growth hormone pending, IGF1 pending ACTH pending 8 AM cortisol is 16.4 24 hours urine cortisol collected FSH is 1.61 which is low normal in the lab reference ranges Normal Males 13-70 years 1.4 - 18.1 IU/L LH is 0.23 alpha subunit was also asked to be drawn but this is a sendout lab test and is pending results -inpatient Neurology service also asked to follow with the patient and no new recommendations other than outpatient visual field testing -No obvious motor deficits, patient performed well with physical therapy evaluation 6 mm solid nodule at the left lower lobe: As per Fleischner criteria for incidental nodule Single nodule; size < 6 mm * Low risk patients: No routine follow-up * High risk patients: Optional CT at 12 months Single nodule; size 6-8 mm * Low risk patients: CT at 6-12 months, then consider CT at 18-24 months * High risk patients: CT at 6-12 months, then at 18-24 months 1) These guidelines apply to incidental nodules. These guidelines do NOT apply to patients younger than 35 years, immunocompromised patients, or patients with cancer. 2) Risk categories: * Low risk patients: Minimal or absent history of smoking and/or other known risk factors * High risk patients: History of smoking, exposure to other carcinogens, emphysema, fibrosis, upper lobe location, family history of lung cancer, etc. 3) If a nodule up to 8 mm is partly solid or is ground glass, further follow-up is required after 24 months to exclude possible slow growing adenocarcinoma. 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, he has previous history of smoking and denies smoking in years, Hospital doctor recommends that he follows with primary doctor to get repeat CT imaging as per Fleischner criteria as a high risk patient Discharge Instructions and Plans Patient is to follow up with his primary care doctor for follow up of Diverticulitis, Pituitray Macroadenoma, Visual Field testing, Lung Nodule follow up Patient is to finish course of ciprofloxacin and Flagyl by 02/23/18 Patient is being referred to see Neuroendocrine in [facility] at [place] for Pituitary Macroadenoma Current Hospital Diet Patient's current hospital diet: Regular Diet Discharge Diet Recommended Diet: Regular Diet Pending Studies Studies pending at discharge: yes List of pending studies: TSH 3.16 which is normal, T4 is 3.9 and free T4 0.61 which are mildly low, T3 is 1.01) prolactin 18.84 which is above lab reference ranges for males as these values are 2.1 to 17.7 ng/ml growth hormone pending, IGF1 pending ACTH pending 8 AM cortisol is 16.4 24 hours urine cortisol collected FSH is 1.61 which is low normal in the lab reference ranges Normal Males 13-70 years 1.4 - 18.1 IU/L LH is 0.23 alpha subunit was also asked to be drawn but this is a sendout lab test and is pending results Laboratory Results 02/16/18 07:45 Red Blood Count 3.46, Mean Corpuscular Volume 86.4, Mean Corpuscular Hemoglobin 29.2, Mean Corpuscular Hemoglobin Concent 33.8, Mean Platelet Volume 8.8, Neutrophils (%) (Auto) 55.0, Lymphocytes (%) (Auto) 28.2, Monocytes (%) (Auto) 9.3, Eosinophils (%) (Auto) 6.5, Basophils (%) (Auto) 0.7, Neutrophils # (Auto) 3.19, Lymphocytes # (Auto) 1.64, Monocytes # (Auto) 0.54, Eosinophils # (Auto) 0.38, Basophils # (Auto) 0.04 02/16/18 07:45 Test 02/15/18 02:20 02/15/18 02:27 02/15/18 06:10 02/15/18 07:40 Estimated Average Glucose 114 mg/dl Hemoglobin A1c 5.6 % (4.5-5.6) Magnesium Level 1.8 mg/dl (1.8-2.4) Total Bilirubin 0.3 mg/dl (0.2-1) Aspartate Amino Transf (AST/SGOT) 19 U/L (15-37) Alanine Aminotransferase (ALT/SGPT) 32 U/L (12-78) Alkaline Phosphatase 76 U/L (45-117) Total Protein 5.8 gm/dl (6.4-8.2) Albumin 2.9 gm/dl (3.4-5.0) Globulin 2.9 gm/dl (2.5-4.0) Albumin/Globulin Ratio 1.0 (0.9-2) Thyroid Stimulating Hormone (TSH) 3.160 uIu/ml (0.300-4.500) Bedside Hemoglobin 9.9 g/dl (14.0-18.0) Bedside Hematocrit 29 % (42-52) Bedside Sodium 136 mEq/L (135-144) Bedside Potassium 3.9 mEq/L (3.3-5.0) Bedside Chloride 102 mEq/L (101-112) Bedside Total CO2 22 mEq/l (24-31) Bedside Blood Urea Nitrogen 19 mg/dl (7-18) Bedside Creatinine 1.0 mg/dl (0.6-1.3) Bedside Glucose (other) 162 mg/dl (70-99) Bedside Ionized Calcium (Jarad) 1.25 mmol/l (1.12-1.32) Absolute Reticulocyte Count 0.06 10^6/uL (0.02-0.10) Percent Reticulocyte Count 1.6 % (0.5-2.0) Iron Level 40 mcg/dl (35-175) Total Iron Binding Capacity 242 mcg/dl (250-450) Transferrin 204 mg/dl (200-360) Transferrin % Saturation 14 % (20-50) Ferritin 137.2 ng/ml (8.0-388.0) Vitamin B12 Level 260 pg/mL (211-911) Folate 15.21 ng/mL (>5.38) Prolactin 18.84 ng/mL Prothrombin Time 10.6 SECONDS (9.0-12.0) Prothromb Time International Ratio 1.0 (0.9-1.1) Activated Partial Thromboplast Time 25.3 SECONDS (21.0-31.0) Partial Thromboplastin Ratio 1.0 Test 02/15/18 12:49 02/15/18 12:57 02/16/18 07:45 Free Thyroxine 0.61 ng/dl (0.80-1.60) Thyroxine (T4) 3.9 mcg/dl (4.5-10.9) Total Triiodothyronine 1.01 ng/ml (0.60-1.81) Follicle Stimulating Hormone 1.61 IU/L Luteinizing Hormone 0.23 IU/L Lactic Acid Level 1.2 mmol/L (0.4-2.0) White Blood Count 5.81 K/uL (4.8-10.8) Red Blood Count 3.46 M/uL (4.7-6.1) Hemoglobin 10.1 g/dL (14.0-18.0) Hematocrit 29.9 % (42-52) Mean Corpuscular Volume 86.4 fL (80-100) Mean Corpuscular Hemoglobin 29.2 pg (25-34) Mean Corpuscular Hemoglobin Concent 33.8 g/dl (32-36) Platelet Count 271 K/uL (130-400) Mean Platelet Volume 8.8 fL (7.4-10.4) Neutrophils (%) (Auto) 55.0 % Lymphocytes (%) (Auto) 28.2 % Monocytes (%) (Auto) 9.3 % Eosinophils (%) (Auto) 6.5 % Basophils (%) (Auto) 0.7 % Neutrophils # (Auto) 3.19 K/uL (1.4-6.5) Lymphocytes # (Auto) 1.64 K/uL (1.2-3.4) Monocytes # (Auto) 0.54 K/uL (0.11-0.59) Eosinophils # (Auto) 0.38 K/uL (0-0.5) Basophils # (Auto) 0.04 K/uL (0-0.2) RDW Standard Deviation 41.8 fL (36.4-46.3) RDW Coefficient of Variation 13.2 % (11.5-14.5) Immature Granulocyte % (Auto) 0.3 % Immature Granulocyte # (Auto) 0.02 K/uL (0.00-0.02) Anion Gap 6.0 mmol/L (3-11) Est Creatinine Clear Calc Drug Dose 89.5 ml/min Estimated GFR () 100.3 Estimated GFR (Non- 86.5 BUN/Creatinine Ratio 11.8 (10-20) Calcium Level 8.4 mg/dl (8.5-10.1) Cortisol AM Sample 16.40 mcg/dl (4.30-22.40) Date/Time Source Procedure Growth Status 02/15/18 20:15 Stool C.difficile Toxin B Gene (PCR) - Final No C. difficile toxin B gene detected Complete Hemoglobin A1c Test 02/15/18 02:20 Range/Units Estimated Average Glucose 114 mg/dl Hemoglobin A1c 5.6 4.5-5.6 % Medical Emergencies . Who to Call and When: Medical Emergencies: If at any time you feel your situation is an emergency, please call 911 immediately. . Non-Emergent Contact Non-Emergency issues call your: Primary Care Provider, Specialist ( Neuroendocrine) Call Non-Emergent contact if: you have any medication questions . . "Provider Documentation" section prepared by Kolby Motta. .
--- NOTE | 2018-02-16 14:35 | Discharge Summary ---
Discharge Summary Date of Service February 16, 2018. Discharge Summary Admission Date: February 15, 2018 at 04:08 Discharge Date: February 16, 2018 Principal Diagnosis: Syncope, Diverticulitis, Pituitary Macroadenoma, left lung nodule Pending Studies/Follow-Up: TSH 3.16 which is normal, T4 is 3.9 and free T4 0.61 which are mildly low, T3 is 1.01) prolactin 18.84 which is above lab reference ranges for males as these values are 2.1 to 17.7 ng/ml growth hormone pending, IGF1 pending ACTH pending 8 AM cortisol is 16.4 24 hours urine cortisol collected FSH is 1.61 which is low normal in the lab reference ranges Normal Males 13-70 years 1.4 - 18.1 IU/L LH is 0.23 alpha subunit was also asked to be drawn but this is a sendout lab test and is pending results Medication Reconciliation Changed Medications: Ciprofloxacin Hcl (Cipro) 500 Mg Tab 500 MG PO BID for 8 Days, #16 TAB (Changed from: BEGIN 02/14/18 X7 DAYS.) Finish medication by 02/23/18 Metronidazole (Flagyl) 500 Mg Tab 500 MG PO TID for 8 Days, #24 TAB (Changed from: BEGIN 02/14/18 X 7 DAYS) Finish medication by 02/23/18 Continued Medications: Multiple Vitamins W/ Minerals (Multi For Him 50+) 1 Tab Tab 1 TAB PO DAILY Discontinued Medications: Acetaminophen (Tylenol) 500 Mg Tab 1000 MG PO DIRECTED PRN for Pain, TAB Aspirin (Aspirin Ec) 325 Mg Tab 325 MG PO DIRECTED PRN for Pain Ferrous Sulfate (Iron) 325 Mg Tab 325 MG PO DAILY Naproxen (Aleve) 220 Mg Tab 220 MG PO DIRECTED PRN for Pain, TAB Admission Information HPI (per Admitting provider): CHIEF COMPLAINT: Syncope. HISTORY OF PRESENT ILLNESS: History obtained from patient, daughter, and records. Medical history significant for chronic anemia (patient does not know his baseline). Last 2 days, patient noted right lower abdominal pain, initially constipated, later noted to have rectal bleeding last night about 2 episodes. No recent antibiotics. No known sick contacts. Aspirin intake for pain. Seen at the Emergency Room. CT abdomen and pelvis showed uncomplicated diverticulitis proximal sigmoid colon , a 6 mm solid nodule in the left lower lobe. Hemoglobin noted to be 11. Patient normotensive. Patient given Cipro and Flagyl tablets at the ER and sent home with antibiotic prescription. At home, patient felt lightheaded, dizzy, had cold sweats, had 2 more bloody bowel movements. Unwitnessed syncopal event in the TV room. Patient found by his . Bladder incontinence noted, no tongue biting. No chest pain, no shortness of breath. No headache. No blurred or double vision. Brought to the Emergency Room. SBP 90s. MEDICAL HISTORY: As above. EGD and colonoscopy this year as per patient with [facility] in [place], [place] for anemia. Normal findings as per patient. SURGICAL HISTORY: He had hernia surgery, eye surgery in childhood. HOME MEDICATIONS. Cipro, Flagyl, iron sulfate, Aleve, aspirin. MVi ALLERGIES: No known drug allergies. FAMILY HISTORY: Heart disease, hypertension PERSONAL SOCIAL HISTORY: Nonsmoker. No EtOH intake. 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 REVIEW OF SYSTEMS: As per HPI. All 10 systems were reviewed, all other ROS negative. Physical Exam (per Admitting): PHYSICAL EXAMINATION: VITAL SIGNS: Blood pressure was noted to be 95/56, pulse rate noted to be 55, RR 20 T 37 sats 99 on room air. GENERAL: Noted to be slightly anxious, no respiratory distress. SKIN: Pallor, warm. HEENT: Pale palpebral conjunctivae. No ptosis, bespectacled. Dry mucosa. NECK: Short, supple. CHEST: Clear to auscultation. No tenderness. HEART: Bradycardic. No murmur. ABDOMEN: Some distention and nontender . EXTREMITIES: No edema. No tenderness no gross deformities NEUROLOGIC coherent, no facial asymmetry . No gross focality. Hospital Course 62 year old male with rectal bleeding and CT suggesting diverticulitis on and was sent home from the ED with ciprofloxacin and flagyl and then subsequently had syncopal episode at home with preceding symptom of diarrhea and possibly blood in the stool. 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 Findings consistent with acute uncomplicated diverticulitis at the proximal sigmoid colon. No extraluminal gas or abscess. 2. 6 mm solid nodule at the left lower lobe. Follow-up per Blair Society 2017 recommendations below. Brain MRI 02/15/18 3.6 x 2.5 x 3.2 cm sellar mass with suprasellar extension with associated bony expansion and remodeling of the sella. This mass abuts the bilateral cavernous carotids which raises the possibility of bilateral cavernous sinus involvement. The lesion also abuts the left inferior aspect of the optic chiasm. The imaging characteristics strongly favor a pituitary macroadenoma Assessment and Plan Diverticulitis -Gastroenterology recommends that patient finish 10 days of cipro/flagyl for diverticulitis; current diverticulitis is a contraindication to colonoscopy; patient had recent EGD/Colonoscopy with [facility] -Patient is to finish course of ciprofloxacin and Flagyl by 02/23/18 Syncope -there is pituitary macroadenoma but it is unclear whether this is cause of syncope. given size of the macroadenoma the pug mill operator have reasoned that patient must have had this tumor for years -possible the syncope was secondary to blood loss vs vasovagal -EEG normal, Echocardiogram normal -no acute telemetry events Pituitary Macroadenoma -discussed the case with neurosurgery Dr. Flores of [facility] in [place] and read back to him the report that the the lesion also abuts the left inferior aspect of the optic chiasm but patient has no obvious visual field deficits, Dr. Flores recommends outpatient clinic followup with neuroendocrine clinic at [facility] in [place] within a week but no immediate need for surgery at this time -discussed the case with endocrinology Dr. Steinberg of [facility] in [place] and he recommended obtaining following labs with some lab values results TSH 3.16 which is normal, T4 is 3.9 and free T4 0.61 which are mildly low, T3 is 1.01) prolactin 18.84 which is above lab reference ranges for males as these values are 2.1 to 17.7 ng/ml growth hormone pending, IGF1 pending ACTH pending 8 AM cortisol is 16.4 24 hours urine cortisol collected FSH is 1.61 which is low normal in the lab reference ranges Normal Males 13-70 years 1.4 - 18.1 IU/L LH is 0.23 alpha subunit was also asked to be drawn but this is a sendout lab test and is pending results -inpatient Neurology service also asked to follow with the patient and no new recommendations other than outpatient visual field testing -No obvious motor deficits, patient performed well with physical therapy evaluation 6 mm solid nodule at the left lower lobe: As per Fleischner criteria for incidental nodule Single nodule; size < 6 mm * Low risk patients: No routine follow-up * High risk patients: Optional CT at 12 months Single nodule; size 6-8 mm * Low risk patients: CT at 6-12 months, then consider CT at 18-24 months * High risk patients: CT at 6-12 months, then at 18-24 months 1) These guidelines apply to incidental nodules. These guidelines do NOT apply to patients younger than 35 years, immunocompromised patients, or patients with cancer. 2) Risk categories: * Low risk patients: Minimal or absent history of smoking and/or other known risk factors * High risk patients: History of smoking, exposure to other carcinogens, emphysema, fibrosis, upper lobe location, family history of lung cancer, etc. 3) If a nodule up to 8 mm is partly solid or is ground glass, further follow-up is required after 24 months to exclude possible slow growing adenocarcinoma. 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, he has previous history of smoking and denies smoking in years, Hospital doctor recommends that he follows with primary doctor to get repeat CT imaging as per Fleischner criteria as a high risk patient Discharge Instructions and Plans Patient is to follow up with his primary care doctor for follow up of Diverticulitis, Pituitray Macroadenoma, Visual Field testing, Lung Nodule follow up Patient is to finish course of ciprofloxacin and Flagyl by 02/23/18 Patient is being referred to see Neuroendocrine in [facility] at [place] for Pituitary Macroadenoma Total time spent on discharge = 40 minutes This includes examination of the patient, discharge planning, medication reconciliation, and communication with other providers. Discharge Instructions see above
[2018-02-16 14:46] VITALS: BP 106/71; PULSE 65; TEMP 36.8; O2SAT 97
== END 2018-02-16 17:55 | disposition home or self-care (01) | DRG 312 ==
LOC: EDBD 02:13 → C.EDA 02:14 → C.2T 04:08 → ENRESERV 04:15
PROVIDERS: ADMIT Hospitalist; ATTEND Hospitalist
DX: R55 Syncope and collapse (principal); K57.91 Diverticulosis of intestine, part unspecified, without perforation or abscess with bleeding; D35.2 Benign neoplasm of pituitary gland; D64.9 Anemia, unspecified; R73.9 Hyperglycemia, unspecified; R91.1 Solitary pulmonary nodule; Z79.899 Other long term (current) drug therapy; Z88.6 Allergy status to analgesic agent